=== PATIENT | male | born 1950 | race Caucasian/White ===

== ENCOUNTER → 2016-11-14 | Outpatient (CLI) | payer OTHER | END | disposition home or self-care (01) | LOC: PCVCCLINIC 15:30 | PROVIDERS: ATTEND Internal Medicine | DX: I25.10 Atherosclerotic heart disease of native coronary artery without angina pectoris (principal); E78.2 Mixed hyperlipidemia; I10 Essential (primary) hypertension; I65.29 Occlusion and stenosis of unspecified carotid artery | CPT/HCPCS: 80061; 93005; G0463 ==

== ENCOUNTER → 2017-08-15 | Outpatient (CLI) | payer MEDICARE | END | disposition home or self-care (01) | LOC: PCVCIMAG 13:04 | DX: I25.119 Atherosclerotic heart disease of native coronary artery with unspecified angina pectoris (principal); I65.23 Occlusion and stenosis of bilateral carotid arteries; I10 Essential (primary) hypertension; E78.2 Mixed hyperlipidemia; Z79.82 Long term (current) use of aspirin; Z79.899 Other long term (current) drug therapy | CPT/HCPCS: 93005; 93880; G0463 ==

== ENCOUNTER 2018-03-11 22:10 | Emergency (ER) | payer MEDICARE ==
[~2018-03-11] VITALS: Ht 167.6 cm; Wt 95.3 kg
[2018-03-11 22:10] VITALS: BP 107/63
[2018-03-11] MEDS ORDERED: OXYMETAZOLINE 0.05% NASAL SPRAY 30ML BOTTLE. NS ONE (22:15)
--- NOTE | 2018-03-11 23:32 | PHYS DOC ---
Past Medical History Past Medical History: Hypertension, Other Additional Past Medical Histor: PARKINSONS Past Surgical History: Hip Replacement, Tonsillectomy Alcohol Use: None Drug Use: None Adult General Chief Complaint Chief Complaint: NOSEBLEED HPI HPI Patient is a 67 year old male who presents to the emergency Department today with complaints of a nosebleed that started after bending over at approximately 2130 this evening. He denies any history of nosebleeds. States that he does take generic Plavix once a day, however he has not taken it for the last 2 days. He denies any shortness of breath, headache, injury, or difficulty breathing through his nose. Review of Systems Review of Systems Constitutional: Denies fever or chills [] Eyes: Denies change in visual acuity, redness, or eye pain [] HENT: Denies nasal congestion or sore throat, reports nose bleeding since approximately 2130 this evening. [] Respiratory: Denies cough or shortness of breath [] Cardiovascular: No additional information not addressed in HPI [] GI: Denies abdominal pain, nausea, vomiting Integument: Denies rash or skin lesions [] Neurologic: Denies headache, focal weakness or sensory changes [] All other systems were reviewed and found to be within normal limits, except as documented in this note. Current Medications Current Medications Current Medications Medications (Trade) Dose Ordered Sig/Greg Start Time Stop Time Status Last Admin Dose Admin Oxymetazoline HCl (Afrin) 2 spray 1X ONCE 03/11/18 22:15 03/11/18 23:13 DC 03/11/18 22:15 2 SPRAY Allergies Allergies Allergies Coded Allergies Type Severity Reaction Last Updated Verified No Known Drug Allergies 03/11/18 No Physical Exam Physical Exam Constitutional: Well developed, well nourished, no acute distress, non-toxic appearance. [] HENT: Normocephalic, atraumatic, bilateral external ears normal, oropharynx moist, no oral exudates, no active bleeding from left nare at this time, dried blood noted below right nare, bleeding controlled with nasal clamp in place and afrin that was given by nurse Eyes: PERRLA, conjunctiva renato; slight amount of dried bloody drainage from left eye, no active bleeding, clear tears at this time ] Neck: supple, no stridor. [] Skin: Warm, dry, no erythema, no rash. [] Back: No tenderness, no CVA tenderness. [] Neurologic: Alert and oriented X 3, normal sensory function, no focal deficits noted. [] Psychologic: Affect normal, judgement normal, mood normal. [] Current Patient Data Vital Signs Vital Signs Date Time Temp Pulse Resp B/P (MAP) Pulse Ox O2 Delivery O2 Flow Rate FiO2 03/11/18 22:10 98.6 66 16 107/63 (78) 97 Room Air 98.6 EKG EKG [] Radiology/Procedures Radiology/Procedures [] Course & Med Decision Making Course & Med Decision Making Pertinent Labs and Imaging studies reviewed. (See chart for details) Patient is a 67-year-old male who presents to emergency department with complaints of nosebleed after bending over at 2130. He denied any injury. VSS. Bleeding was controlled after afrin nasal spray was administered and a nasal clamp was applied. Pt denies any complaints. PT was instructed not to blow his nose or pick his nose for the next few days. Follow up with primary care doctor in 1-2 days. Use the nasal clamps provided in the event that your nose bleed resumes. He and his brother verbalized an understanding of home care , follow-up, and return to ED instructions and were in agreement with POC. [] Dragon Disclaimer Dragon Disclaimer This electronic medical record was generated, in whole or in part, using a voice recognition dictation system. Departure Departure Impression: Primary Impression: Right-sided nosebleed Disposition: 01 HOME, SELF-CARE Condition: STABLE Referrals: BRUNILDA MATTHEWS MD (PCP) Patient Instructions: Nosebleed, [id number] Additional Instructions: Do not to blow nose or stick things inside of nose for the next few days. Follow up with primary care doctor in 1-2 days. Use the nasal clamps provided in the event that your nose bleed resumes. Return to the ER if your symptoms worsen. SUSU SANTIAGO [employer] Mar 11, 2018 23:32
== END 2018-03-12 00:37 | disposition home or self-care (01) ==
LOC: ER 22:10
DX: R04.0 Epistaxis (principal); I10 Essential (primary) hypertension; G20 Parkinson's disease
CPT/HCPCS: 99283

== ENCOUNTER 2018-12-10 10:08 | Emergency (ER) | payer MEDICARE ==
[~2018-12-10] VITALS: Ht 165.1 cm; Wt 90.7 kg
[2018-12-10] MEDS ORDERED: LIDOCAINE/EPI/TETRACAINE TOPICAL GEL 3 ML. TP ONE (11:00)
[2018-12-10] MEDS ORDERED: NEOMY/BACITR/POLYMYXIN OINT PACKET. TP ONE (11:00)
--- NOTE | 2018-12-10 11:28 | RAD ---
CT HEAD INDICATION: Occipital head contusion, laceration COMPARISON: None Available. Exposure: One or more of the following individualized dose reduction techniques were utilized for this examination: 1. Automated exposure control 2. Adjustment of the mA and/or kV according to patient size 3. Use of iterative reconstruction technique TECHNIQUE: 5 mm contiguous axial images were obtained from the skull base to the vertex FINDINGS: Mild bilateral periventricular white matter hypodensities likely chronic small vessel ischemic disease. Small scalp contusion or hematoma identified in the superior occipital region. No evidence of acute intracranial hemorrhage. No extra-axial fluid collections. No mass effect or midline shift. Ventricular size is appropriate. Basal cisterns are patent. No fractures identified.Funes-white differentiation is preserved.Globes and orbits are within normal limits. Paranasal sinuses and mastoid air cells are clear. IMPRESSION: 1. No acute intracranial findings. 2. Small scalp contusion or hematoma identified in the right superior occipital region. Electronically signed by: John Brown MD (12/10/2018 11:25 AM) [id number]
[2018-12-10] MEDS ORDERED: DIPHTH,PERTUSS(ACELL),TET TOX 0.5 ML DISP.SYRIN. VAX IM ONE (11:30)
--- NOTE | 2018-12-10 11:59 | PHYS DOC ---
Past Medical History Past Medical History: Hypertension, Stroke Additional Past Medical Histor: parkinsons Past Surgical History: Hip Replacement Alcohol Use: Rarely Drug Use: None Adult General Chief Complaint Chief Complaint: LACERATION/AVULSION HPI HPI Patient is a 68 year old [f__sex] who presents with [] Review of Systems Review of Systems Constitutional: Denies fever or chills [] Eyes: Denies change in visual acuity, redness, or eye pain [] HENT: Denies nasal congestion or sore throat [] Respiratory: Denies cough or shortness of breath [] Cardiovascular: No additional information not addressed in HPI [] GI: Denies abdominal pain, nausea, vomiting, bloody stools or diarrhea [] : Denies dysuria or hematuria [] Musculoskeletal: Denies back pain or joint pain [] Integument: Denies rash or skin lesions [] Neurologic: Denies headache, focal weakness or sensory changes [] Endocrine: Denies polyuria or polydipsia [] All other systems were reviewed and found to be within normal limits, except as documented in this note. Current Medications Current Medications Current Medications Medications (Trade) Dose Ordered Sig/Greg Start Time Stop Time Status Last Admin Dose Admin Diphtheria/ Tetanus/Acell Pertussis (Boostrix) 0.5 ml ONCE ONCE 12/10/18 11:30 12/10/18 11:31 DC 12/10/18 11:48 0.5 ML Lidocaine/ Epinephrine (Let Topical) 3 ml 1X ONCE 12/10/18 11:00 12/10/18 11:01 DC 12/10/18 11:05 3 ML Neomycin/ Polymyxin/ Bacitracin (Triple Antibiotic Ointment) 1 pkt 1X ONCE 12/10/18 11:00 12/10/18 11:01 DC 12/10/18 11:05 1 PKT Allergies Allergies Allergies Coded Allergies Type Severity Reaction Last Updated Verified No Known Drug Allergies 03/11/18 No Physical Exam Physical Exam Constitutional: Well developed, well nourished, no acute distress, non-toxic appearance. [] HENT: Normocephalic, atraumatic, bilateral external ears normal, oropharynx moist, no oral exudates, nose normal. [] Eyes: PERRLA, EOMI, conjunctiva normal, no discharge. [] Neck: Normal range of motion, no tenderness, supple, no stridor. [] Cardiovascular:Heart rate regular rhythm, no murmur [] Lungs & Thorax: Bilateral breath sounds clear to auscultation [] Abdomen: Bowel sounds normal, soft, no tenderness, no masses, no pulsatile masses. [] Skin: Warm, dry, no erythema, no rash. [] Back: No tenderness, no CVA tenderness. [] Extremities: No tenderness, no cyanosis, no clubbing, ROM intact, no edema. [] Neurologic: Alert and oriented X 3, normal motor function, normal sensory function, no focal deficits noted. [] Psychologic: Affect normal, judgement normal, mood normal. [] Current Patient Data Vital Signs Vital Signs Date Time Temp Pulse Resp B/P (MAP) Pulse Ox O2 Delivery O2 Flow Rate FiO2 12/10/18 10:39 97.9 62 16 156/73 (100) 96 Room Air 97.9 EKG EKG [] Radiology/Procedures Radiology/Procedures [] Course & Med Decision Making Course & Med Decision Making Pertinent Labs and Imaging studies reviewed. (See chart for details) [] Dragon Disclaimer Dragon Disclaimer This electronic medical record was generated, in whole or in part, using a voice recognition dictation system. Departure Departure Impression: Primary Impression: Scalp contusion Additional Impression: Occipital scalp laceration Disposition: 01 HOME, SELF-CARE Condition: STABLE Referrals: BRUNILDA MATTHEWS MD (PCP) Patient Instructions: Facial or Scalp Contusion, [id number], Laceration Care, Adult, [id number] Additional Instructions: Do not soak your wound. You may shower. Clean wound daily with soap and water. Change dressing 2 times daily. Use over the counter antibiotic ointment with each dressing change. Strunk need to be removed in 7 days. Present to your family doctor or local [facility] care for removal. You may also present to the ED but it will be an additional visit/charge. After staple removal you may use Vitamin E ointment to soften the wound and prevent scarring. Use over the counter Tylenol or Ibuprofen for pain Problem Qualifiers Primary Impression: Scalp contusion Encounter type: initial encounter Qualified Codes: S00.03XA - Contusion of scalp, initial encounter Additional Impression: Occipital scalp laceration Encounter type: initial encounter Qualified Codes: S01.01XA - Laceration without foreign body of scalp, initial encounter MADI GO DO December 10, 2018 11:59
[2018-12-10] MEDS ORDERED: IBUPROFEN 400 MG TABLET. PO ONE (12:00)
[2018-12-10 12:30] VITALS: BP 186/91
== END 2018-12-10 12:30 | disposition home or self-care (01) ==
LOC: ER 10:08
DX: S01.01XA Laceration without foreign body of scalp, initial encounter (principal); R51 Headache; I10 Essential (primary) hypertension; Z86.73 Personal history of transient ischemic attack (TIA), and cerebral infarction without residual deficits; W20.8XXA Other cause of strike by thrown, projected or falling object, initial encounter; Y93.89 Activity, other specified; Y92.89 Other specified places as the place of occurrence of the external cause; Y99.8 Other external cause status
CPT/HCPCS: 12001; 70450; 90471; 90715; 99284-25

== ENCOUNTER 2019-01-31 11:19 | Emergency (ER) | payer MEDICARE ==
[~2019-01-31] VITALS: Ht 167.6 cm; Wt 88.5 kg
--- NOTE | 2019-01-31 12:27 | PHYS DOC ---
Past Medical History Past Medical History: Hypertension, Hypothyroid, Stroke Additional Past Medical Histor: parkinsons Past Surgical History: Hip Replacement Alcohol Use: Rarely Drug Use: None Adult General Chief Complaint Chief Complaint: MECHANICAL FALL HPI HPI Patient is a 68 year old male with history of Parkinson's disease who resents with accidental fall from standing with facial trauma and bilateral pain. Patient lost balance and fell striking his face on the ground. Patient denies l oss of consciousness, headache and neck pain. He is currently on Plavix. Patient also plans of bilateral knee pain left greater than right without obvious deformity on exam. Patient denies dizziness lightheadedness chest pain palpitations or any medical symptoms prior to fall. He has a history of prior falls. Tetanus is up-to-date. Additional history obtained from patient's brother. Patient lives at home with his .[] Review of Systems Review of Systems Review symptoms as per history of present illness. All other systems were reviewed and found to be within normal limits, except as documented in this note. Current Medications Current Medications Current Medications Medications (Trade) Dose Ordered Sig/Greg Start Time Stop Time Status Last Admin Dose Admin Cefazolin Sodium (Ancef) 1 gm Q8HRS 01/31/19 14:00 01/31/19 14:00 1 GM Cefazolin Sodium 1 gm/Dextrose 50 ml @ 100 mls/hr Q8HRS 01/31/19 14:00 01/31/19 14:00 DC Clonidine HCl (Catapres) 0.2 mg 1X ONCE 01/31/19 15:30 01/31/19 15:31 DC 01/31/19 15:25 0.2 MG Fentanyl Citrate (Fentanyl 2ml Vial) 50 mcg 1X ONCE 01/31/19 12:30 01/31/19 12:31 DC 01/31/19 12:25 50 MCG Lidocaine/ Epinephrine (LIDOCAINE 1%-EPI 1:100,000 Multi-Dose) 20 ml 1X ONCE 01/31/19 14:30 01/31/19 14:31 DC 01/31/19 14:30 20 ML Morphine Sulfate (Morphine Sulfate) 4 mg 1X ONCE 01/31/19 15:30 01/31/19 15:31 DC 01/31/19 15:24 4 MG Ondansetron HCl (Zofran) 4 mg 1X ONCE 01/31/19 12:30 01/31/19 12:31 DC 01/31/19 12:25 4 MG Allergies Allergies Allergies Coded Allergies Type Severity Reaction Last Updated Verified No Known Drug Allergies 03/11/18 No Physical Exam Physical Exam Constitutional: Well developed, well nourished, no acute distress, non-toxic appearance. [] HENT: Normocephalic, nasal bridge deformity with superficial laceration, left forehead laceration, abrasions to left maxilla, bilateral external ears normal, oropharynx moist. [] Eyes: PERRLA, EOMI, conjunctiva normal. [] Neck: Normal range of motion, no tenderness, supple. [] Cardiovascular:Heart rate regular rhythm, no murmur. [] Lungs & Thorax: Bilateral breath sounds clear to auscultation. [] Abdomen: Bowel sounds normal, soft, no tenderness. [] Skin: Warm. [] Back: No tenderness, no CVA tenderness. [] Extremities: No tenderness, B abrasions, no deformity, range of motion intact. [] Neurologic: Alert and oriented X 3, normal motor function, normal sensory function, no focal deficits noted. [] Psychologic: Affect normal, judgement normal, mood normal. [] Current Patient Data Vital Signs Vital Signs Date Time Temp Pulse Resp B/P (MAP) Pulse Ox O2 Delivery O2 Flow Rate FiO2 01/31/19 15:25 69 216/115 01/31/19 15:24 22 01/31/19 11:26 97.7 96 Room Air 97.7 Lab Values Laboratory Tests Test 01/31/19 12:40 01/31/19 13:55 White Blood Count 6.6 x10^3/uL (4.0-11.0) Red Blood Count 3.99 x10^6/uL (4.30-5.70) L Hemoglobin 12.7 g/dL (13.0-17.5) L Hematocrit 36.7 % (39.0-53.0) L Mean Corpuscular Volume 92 fL (79-100) Mean Corpuscular Hemoglobin 32 pg (25-35) Mean Corpuscular Hemoglobin Concent 35 g/dL (31-37) Red Cell Distribution Width 14.3 % (11.5-14.5) Platelet Count 157 x10^3/uL (140-400) Neutrophils (%) (Auto) 78 % (31-73) H Lymphocytes (%) (Auto) 12 % (24-48) L Monocytes (%) (Auto) 8 % (0-9) Eosinophils (%) (Auto) 1 % (0-3) Basophils (%) (Auto) 1 % (0-3) Neutrophils # (Auto) 5.2 x10^3uL (1.8-7.7) Lymphocytes # (Auto) 0.8 x10^3/uL (1.0-4.8) L Monocytes # (Auto) 0.5 x10^3/uL (0.0-1.1) Eosinophils # (Auto) 0.0 x10^3/uL (0.0-0.7) Basophils # (Auto) 0.0 x10^3/uL (0.0-0.2) Sodium Level 140 mmol/L (136-145) Potassium Level 3.6 mmol/L (3.5-5.1) Chloride Level 107 mmol/L (98-107) Carbon Dioxide Level 24 mmol/L (21-32) Anion Gap 9 (6-14) Blood Urea Nitrogen 23 mg/dL (8-26) Creatinine 0.9 mg/dL (0.7-1.3) Estimated GFR (Cockcroft-Gault) 83.7 BUN/Creatinine Ratio 26 (6-20) H Glucose Level 108 mg/dL (70-99) H Calcium Level 8.9 mg/dL (8.5-10.1) Total Bilirubin 0.8 mg/dL (0.2-1.0) Aspartate Amino Transferase (AST) 21 U/L (15-37) Alanine Aminotransferase (ALT) 12 U/L (16-63) L Alkaline Phosphatase 76 U/L (46-116) Troponin I Quantitative < 0.017 ng/mL (0.000-0.055) Total Protein 6.4 g/dL (6.4-8.2) Albumin 3.5 g/dL (3.4-5.0) Albumin/Globulin Ratio 1.2 (1.0-1.7) Urine Collection Type Unknown Urine Color Yellow Urine Clarity Clear Urine pH 5.5 Urine Specific [place] 1.020 Urine Protein Negative mg/dL (NEG-TRACE) Urine Glucose (UA) Negative mg/dL (NEG) Urine Ketones (Stick) Negative mg/dL (NEG) Urine Blood Negative (NEG) Urine Nitrite Negative (NEG) Urine Bilirubin Negative (NEG) Urine Urobilinogen Dipstick 1.0 mg/dL (0.2 mg/dL) Urine Leukocyte Esterase Negative (NEG) Urine RBC Occ /HPF (0-2) Urine WBC 0 /HPF (0-4) Urine Bacteria 0 /HPF (0-FEW) Urine Mucus Mod /LPF Laboratory Tests 01/31/19 12:40 Laboratory Tests 01/31/19 12:40 EKG EKG [] Radiology/Procedures Radiology/Procedures CT head/facial bones/cspine: No intracranial injury, nasal bone fracture with possible sinus ease versus hemorrhage, no C-spine injury. [Bilateral knees: No acute fractures] Course & Med Decision Making Course & Med Decision Making Pertinent Labs and Imaging studies reviewed. (See chart for details) [EKG lab and imaging was reviewed. Wounds cleansed, lacerations do not require repair. Typical closed head injury instructions provided. BP addressed. Patient walks with steady gait with walker prior to discharge.] Dragon Disclaimer Dragon Disclaimer This electronic medical record was generated, in whole or in part, using a voice recognition dictation system. Departure Departure Impression: Primary Impression: Contusion, knee Additional Impressions: Minor head injury Nasal bone fracture Parkinson disease Facial laceration Disposition: HOME, SELF-CARE Condition: GOOD Referrals: BRUNILDA MATTHEWS MD (PCP) Scripts Cephalexin (KEFLEX) 500 Mg Capsule 1 CAP PO TID, #21 CAP Prov: TRAV THAO DO 01/31/19 Problem Qualifiers TRAV THAO DO Jan 31, 2019 12:27
[2019-01-31] MEDS ORDERED: ONDANSETRON PF 4 MG/2 ML VIAL. IV ONE (12:30)
[2019-01-31] MEDS ORDERED: ceFAZolin SODIUM IV Push 1 GM VIAL. IVP ONE (12:30)
[2019-01-31] MEDS ORDERED: fentaNYL PF VIAL 100 MCG/2 ML VIAL IV ONE (12:30)
[2019-01-31 12:48] LABS: BASO % 1 % (0-3); EOS % 1 % (0-3); HEMATOCRIT 36.7 % (39.0-53.0); HEMOGLOBIN 12.7 g/dL (13.0-17.5); LYMPH # 0.8 x10^3/uL (1.0-4.8); LYMPH % 12 % (24-48); MEAN CORPUSCULAR HEMOGLOBIN 32 pg (25-35); MEAN CORPUSCULAR HGB CONC 35 g/dL (31-37); MEAN CORPUSCULAR VOLUME 92 fL (79-100); MONO # 0.5 x10^3/uL (0.0-1.1); MONO % 8 % (0-9); NEUT # 5.2 x10^3uL (1.8-7.7); NEUT % 78 % (31-73); PLATELET COUNT 157 x10^3/uL (140-400); RED BLOOD COUNT 3.99 x10^6/uL (4.30-5.70); RED CELL DISTRIBUTION WIDTH 14.3 % (11.5-14.5); WHITE BLOOD COUNT 6.6 x10^3/uL (4.0-11.0)
[2019-01-31 12:58] LABS: CALCIUM 8.9 mg/dL (8.5-10.1); CREATININE 0.9 mg/dL (0.7-1.3); GFR 83.7; POTASSIUM 3.6 mmol/L (3.5-5.1)
[2019-01-31 13:04] LABS: ALBUMIN 3.5 g/dL (3.4-5.0); ALBUMIN/GLOBULIN RATIO 1.2 (1.0-1.7); TOTAL BILIRUBIN 0.8 mg/dL (0.2-1.0); TOTAL PROTEIN 6.4 g/dL (6.4-8.2)
--- NOTE | 2019-01-31 13:06 | RAD ---
Exam performed: Bilateral knee 3 views. HISTORY: Trauma, patient fell on both knees today. DATE OF SERVICE: 01/31/2019. COMPARISON: None available FINDINGS: Severe narrowing of the left medial and lateral tibiofemoral and moderate narrowing of the patellofemoral joint is seen. Diffuse osteophytic spurring is noted. Extensive atheromatous vascular calcification. Vertically oriented well-corticated lucency is seen along the tibial spines, however no associated effusion is seen and a fracture is not considered likely. Mild narrowing of the right patellofemoral joint is seen. Normal alignment of the medial and lateral tibiofemoral joint is identified. There is no acute fracture or dislocation. No joint effusion. Bony thorax arthrosis involving proximal tibia and fibula. 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 Mild degenerative changes involving the right patellofemoral joint. No acute abnormality seen Electronically signed by: Amber Brown MD (01/31/2019 1:04 PM) [facility]
--- NOTE | 2019-01-31 13:35 | RAD ---
Exam performed: CT scan of the head , maxillofacial and cervical spine without contrast. Date of Service: 01/31/2019 Comparison: None available Clinical History: Patient fell and hit head and neck, complaining of facial injury and neck pain Technique: Helical acquisitions are obtained from the foramen magnum to the vertex without intravenous administration of contrast. In addition helical acquisitions are obtained through the maxillofacial structures and cervical spine. Sagittal and coronal reformatted images are obtained and reviewed. CT scan head findings: Prominence of cortical sulci and ventricular system is noted consistent with age-related atrophy. There are areas of low-attenuation in both periventricular and subcortical deep white matter cystic small vessel ischemic changes. Small bilateral lacunar infarcts. Normal ceja-white differentiation is maintained. There is no extra axial fluid collection, intraparenchymal hemorrhage or mass lesion. The visualized orbits, and the mastoid air cells are clear. Fluid in the left maxillary and bilateral ethmoid air cells noted. The calvarium is intact. Impression: 1. No acute intracranial process detected. 2. Age-related atrophy and bilateral periventricular small vessel ischemic changes. 3. Left maxillary and bilateral ethmoid sinus disease. End Impression. CT cervical spine findings: There is straightening of the cervical spine with minimal grade 1 anterolisthesis of C3 over C4. There is mild scoliosis of the cervical spine with rightward concavity . The vertebral body heights are preserved. There is narrowing of C4/5, C5/6 as well as C6/7 intravertebral disc spaces with mild osteophytic spurring. No prevertebral soft tissue swelling is identified. There are no fractures. No definite lymphadenopathy or masses are seen within the neck. The visualized thyroid and salivary glands appears preserved. Impression: 1. No acute abnormality seen in the CT scan cervical spine. 2. Spondylotic changes and multilevel disc degenerative changes are seen. End impression CT maxillofacial findings: There is an fluid level in the left maxillary sinus. Diffuse opacification of bilateral ethmoid air cells. There is probable fracture of left nasal bone with diffuse soft tissue swelling. Soft tissue density likely hemorrhage seen filling nasal cavity and oropharynx. The bony orbital margins and the intraorbital contents are bilaterally symmetric and unremarkable. Bilateral temporomandibular joints and the mandible appears intact. Zygomatic arches are bilaterally preserved. IMPRESSION: 1. Probable nondisplaced fracture distal tip of left nasal bone. 2. Air-fluid level in the left maxillary sinus and bilateral ethmoid air cells consistent with acute sinus disease or hemorrhage. RS Compliance Statement: One or more of the following individualized dose reduction techniques were utilized for this examination: 1. Automated exposure control 2. Adjustment of the mA and/or kV according to patient size 3. Use of iterative reconstruction technique Electronically signed by: Amber Brown MD (01/31/2019 1:33 PM) [facility]
[2019-01-31] MEDS ORDERED: ceFAZolin SODIUM IV Push 1 GM VIAL. IVP SCH (14:00)
[2019-01-31] MEDS ORDERED: ceFAZolin SODIUM 1 GM in IV DEXTROSE 5% 50 ML IV SCH (14:00)
[2019-01-31 14:01] LABS: BILIRUBIN,URINE NEGATIVE (NEG); CLARITY,URINE CLEAR; COLOR,URINE YELLOW; NITRITE,URINE NEGATIVE (NEG); PH,URINE 5.5; PROTEIN,URINE NEGATIVE (NEG-TRACE)
[2019-01-31 14:05] LABS: BACTERIA,URINE 0 /HPF (0-FEW); RBC,URINE OCC /HPF (0-2); WBC,URINE 0 /HPF (0-4)
[2019-01-31] MEDS ORDERED: LIDOCAINE 1%/EPI 1:100,000 20 ML VIAL. INJ ONE (14:30)
[2019-01-31 15:25] VITALS: BP 216/115
[2019-01-31] MEDS ORDERED: MORPHINE SULFATE 4 MG/ML VIAL. IV ONE (15:30)
[2019-01-31] MEDS ORDERED: cloNIDine HCL 0.1 MG TABLET PO ONE (15:30)
[2019-01-31] MEDS ORDERED: CEPH-264 PO (15:58)
--- NOTE | 2019-02-01 08:31 | EKG ---
[facility] [address] [place] [id number] Test Date: 2019-01-31 Test Time: 12:42:04 Pat Name: DAMIAN HERNANDEZ Department: Room: Gender: M Beader: : 1950 Requested By: TRAV THAO Order Number: [id number] Reading MD: Measurements Intervals [place] Rate: 71 P: 90 IL: 208 QRS: -6 QRSD: 120 T: -10 QT: 400 QTc: 435 Interpretive Statements SINUS RHYTHM LEFTWARD AXIS LOW LIMB LEAD VOLTAGE QRS(T) CONTOUR ABNORMALITY CONSIDER ANTEROSEPTAL MYOCARDIAL DAMAGE POSSIBLY ABNORMAL ECG RI6.01 Unconfirmed report No previous ECG available for comparison
== END 2019-01-31 16:07 | disposition home or self-care (01) ==
LOC: ER 11:19
DX: S02.2XXA Fracture of nasal bones, initial encounter for closed fracture (principal); S01.81XA Laceration without foreign body of other part of head, initial encounter; S80.02XA Contusion of left knee, initial encounter; S80.01XA Contusion of right knee, initial encounter; S09.8XXA Other specified injuries of head, initial encounter; M54.2 Cervicalgia; G20 Parkinson's disease; I10 Essential (primary) hypertension; E03.9 Hypothyroidism, unspecified; Z86.73 Personal history of transient ischemic attack (TIA), and cerebral infarction without residual deficits; W18.09XA Striking against other object with subsequent fall, initial encounter; Y93.89 Activity, other specified; Y92.89 Other specified places as the place of occurrence of the external cause; Y99.8 Other external cause status
CPT/HCPCS: 36415; 70450; 70486; 72125; 73562; 80053; 81001; 84484; 85025; 93005; 96372; 96374; 96375; 96376; 99285; J0690; J2270; J2405; J3010; J3490

== ENCOUNTER → 2020-08-25 | Outpatient (CLI) | payer MEDICARE ==
[2020-05-15 14:28] VITALS: BP 130/60
[~2020-08-25] MED LIST: AMAN100T PO; AMLO-186 PO; ASPI-630 PO; BISA5TAB4 PO; CARB1TAB22 PO; CARB1TAB5 PO; CARV25TA PO; CEFD300C PO; CEPH-264 PO; CLOP75TA PO; EZET10TA20 PO; GEMF600T8 PO; LEVO150T PO; LISI-130 PO; MULT-245 PO; NAPR220C4 PO; QUET25TA PO; QUIN40TA16 PO; SENN-22 PO; TRAZ-118 PO; TROS60CA2 PO
--- NOTE | 2020-08-25 18:00 | KCIC ---
AP and lateral chest. HISTORY: Lung crackles, R09.89 AP and lateral views were taken of the chest. Comparison is made with a study from July 2019. Hear t is upper normal in size. There is elevation of the right diaphragm similar to the prior study. Ther e are no acute infiltrates. There is no pleural effusion. IMPRESSION: 1. Elevated right diaphragm. 2. No acute infiltrates. Electronically signed by: Trip Hernández MD (08/25/2020 5:57 PM) [id number]
== END ==
LOC: KCIC 15:33
PROVIDERS: ATTEND Nurse Practitioner Gerontology
DX: Q79.1 Other congenital malformations of diaphragm (principal); R09.89 Other specified symptoms and signs involving the circulatory and respiratory systems
CPT/HCPCS: 71046

== ENCOUNTER 2021-06-04 14:21 | Inpatient (IN) | payer MEDICARE ==
[~2021-06-04] VITALS: Ht 157.5 cm; Wt 65.0 kg
[~2021-06-04 14:21] MED LIST changes: +ACET325T21 PO; +GEMF600T20 PO; -GEMF600T8 PO; +LEVO125T5 PO; +MAG30ORA2 PO; -QUET25TA PO; +QUET25TA3 PO
[2021-06-04] MEDS ORDERED: ALTEPLASE 2MG VIAL 5 MG in IV NORMAL SALINE 50ML 30 ML IV ONE ×2 (18:45→21:30)
--- NOTE | 2021-06-04 19:00 | PHYS DOC ---
Past Medical History Past Medical History: CVA, High Cholesterol, Hypertension, Hypothyroid Additional Past Medical Histor: PARKINSONS, SLEEP APNEA, HLD, NEUROPATHY, PVD, BPH, FALLS (TOÑA GARCIA APRN) Past Surgical History: Hip Replacement Additional Past Surgical Histo: BILATERAL HIP REPLACEMENT (TOÑA GARCIA APRN) Smoking Status: Former Smoker Alcohol Use: None Drug Use: None (TOÑA GARCIA APRN) General Adult EDM: Chief Complaint: OTHER COMPLAINTS HPI: HPI: Patient is a 71 year old male who presents with clogged port. Patient was brought in by dialysis social worker from his senior care. Patient is nonverbal. Staff states no other complaints from patient or concerns. Patient has history of CVA, hypertension, Parkinson's, dementia (TOÑA GARCIA APRN) Review of Systems: Review of Systems: ROS At least 10 ROS systems have been reviewed and are negative except as documented in the HPI. General: Negative except as outlined in HPI above. Skin: Negative except as outlined in HPI above. HEENT: Negative except as outlined in HPI above. Neck: Negative except as outlined in HPI above. Respiratory: Negative except as outlined in HPI above.. Cardiovascular: Negative except as outlined in HPI above. Abdomen: Negative except as outlined in HPI above. : Negative except as outlined in HPI above. Back/MSK: Negative except as outlined in HPI above. Neuro: Negative except as outlined in HPI above. Psych: Negative except as outlined in HPI above. (TOÑA GARCIA APRN) Heart Score: C/O Chest Pain: No Risk Factors: Risk Factors: DM, Current or recent (<one month) smoker, HTN, HLP, family history of CAD, obesity. Risk Scores: Score 0 - 3: 2.5% MACE over next 6 weeks - Discharge Home Score 4 - 6: 20.3% MACE over next 6 weeks - Admit for Clinical Observation Score 7 - 10: 72.7% MACE over next 6 weeks - Early Invasive Strategies (TOÑA GARCIA APRN) Current Medications: Current Medications Medications (Trade) Dose Ordered Sig/Greg Start Time Stop Time Status Last Admin Dose Admin Alteplase, Recombinant (Cathflo) 2 mg 1X ONCE 06/04/21 19:15 06/04/21 19:16 06/04/21 18:52 2 MG Alteplase, Recombinant 5 mg/ Sodium Chloride 30 ml @ 30 mls/hr 1X ONCE 06/04/21 18:45 06/04/21 18:42 DC (TOÑA GARCIA APRN) Allergies: Allergies: Allergies Coded Allergies Type Severity Reaction Last Updated Verified No Known Drug Allergies 03/11/18 No (TOÑA GARCIA APRN) Physical Exam: PE: Constitutional: Well developed, well nourished, no acute distress, non-toxic appearance. [] HENT: Normocephalic, atraumatic, bilateral external ears normal, oropharynx moist, no oral exudates, nose normal. [] Eyes: PERRLA, EOMI, conjunctiva normal, no discharge. [] Neck: Normal range of motion, no tenderness, supple, no stridor. [] Cardiovascular:Heart rate regular rhythm, no murmur [] Lungs & Thorax: Bilateral breath sounds clear to auscultation [] Abdomen: Bowel sounds normal, soft, no tenderness, no masses, no pulsatile masses. [] Skin: Warm, dry, no erythema, no rash. [] Back: No tenderness, no CVA tenderness. [] Extremities: No tenderness, no cyanosis, no clubbing, ROM intact, no edema. [] Neurologic: Alert and oriented to self, patient had previous CVA and is at baseline per staff and social work Psychologic: Affect normal, judgement normal, mood normal. [] (TOÑA GARCIA APRN) Current Patient Data: Vital Signs: Vital Signs Date Time Temp Pulse Resp B/P (MAP) Pulse Ox O2 Delivery O2 Flow Rate FiO2 06/04/21 18:13 98.5 75 17 198/109 (138) 100 Room Air 98.5 (TOÑA GARCIA APRN) EKG: EKG: [] (TOÑA GARCIA APRN) Radiology/Procedures: Radiology/Procedures: [] (TOÑA GARCIA APRN) Course & Med Decision Making: Course & Med Decision Making Pertinent Labs and Imaging studies reviewed. (See chart for details) [] 71-year-old male presents with a clogged port per nursing facility. Patient is currently receiving medication to treat MRSA and the port stopped working and flushing today. Denies all other complaints. Patient had previous CVA. Patient is nonverbal. Staff at nursing facility states patient is occasionally alert to self. Attempted to correct problem with Cathflo, which was unsuccessful. Advised dialysis social worker that patient would need to be admitted for further care Spoke with hospitalist who will be admitting patient for observation and surgical consult. Patient has history of dementia and became very agitated. Patient given 2 of Ativan. Patient was resting and calm upon admission. (TOÑA GARCIA APRN) Course & Med Decision Making I was the Attending physician on the above date of service of this patient. This patient was evaluated, examined, treated, and dispositioned from the emergency department by the mid-level practitioner. I reviewed case and agreed to need for admission for port malfunction/occlusion and surgical consultation Electronically signed, Santos Dubose DO (SANTOS DUBOSE DO) Paul Disclaimer: Paul Disclaimer: This electronic medical record was generated, in whole or in part, using a voice recognition dictation system. (TOÑA GARCIA APRN) Departure Departure Impression: Primary Impression: Port-A-Cath in place Disposition: ADMITTED INPATIENT Condition: STABLE Referrals: LUCI ORO MD (PCP) Scripts Daptomycin (Daptomycin) 350 Mg Vial 390 MG IV DAILY for MRSA abscess for 20 Days, #23 EACH Prov: GALINA LILLY MD 06/07/21 Levothyroxine Sodium (LEVOTHYROXINE SODIUM) 125 Mcg Tablet 1 TAB PO DAILY06 for hypothyroid, #30 TAB 5 Refills Prov: GALINA LILLY MD 06/07/21 Carvedilol (COREG) 25 Mg Tablet 25 MG PO BIDWMEALS for CARDIAC for 30 Days, #60 TAB Prov: GALINA LILLY MD 06/07/21 TOÑA GARCIA APRN Jun 04, 2021 18:59 SANTOS DUBOSE DO Jun 09, 2021 06:07
[2021-06-04] MEDS ORDERED: ALTEPLASE 2 MG VIAL INT CAT ONE ×2 (19:15→22:00)
[2021-06-04] MEDS ORDERED: HALOPERIDOL LACTATE 5 MG/ML VIAL. IVP ONE (23:45)
[2021-06-05] VITALS (8 sets, daily range): BP systolic 129–209; BP diastolic 81–113
--- NOTE | 2021-06-05 01:33 | EKG ---
[facility] [address] [place] [address] Test Date: 2021-06-05 Test Time: 00:39:37 Pat Name: DAMIAN HERNANDEZ Department: Room: 404 Gender: M Engine Pilot: : [id number] Requested By: TOÑA GARCIA Order Number: [id number] Reading MD: Elia Dean MD Measurements Intervals [place] Rate: 74 P: -140 [place]: 140 QRS: -37 QRSD: 132 T: 15 QT: 416 QTc: 467 Interpretive Statements SR BASEILNE ARTIFACT NON-SPECIFIC ST/T CHANGES CONSIDER PRIOR SEPTAL INFARCT Electronically Signed On 06-05-2021 9:01:15 ELECTRICAL AND INSTRUMENT MECHANIC by Elia Dean MD
--- NOTE | 2021-06-05 01:34 | NUR ---
The patient, DAMIAN HERNANDEZ, 71 y/o, M admitted by CLAUDINE ERICKSON MD, was given written information regarding hospital policies, unit procedures and contact persons. Valuables were checked and left with him.
[2021-06-05] MEDS: IV NORMAL SALINE 1000ML BAG 1,000 ML IV SCH ×2 (01:52→14:50)
--- NOTE | 2021-06-05 07:05 | PDOC1 ---
History and Physical Date of Admission Date of Admission DATE: 06/05/21 TIME: 07:04 Identification/Chief Complaint Chief Complaint Dyphagia Source Source: Patient History of Present Illness History of Present Illness Mr Kee is a 71-year-old male w/ PMHx CVA (left basal ganglia), HTN, Parkinson disease, and per history recent salivary gland surgery on Daptomycin who was brought to ED from SNF for PICC access problems and dysphagia. He has frequent falls. Patient denies any chest pain, denies any fever, denies any cough. When he falls it is almost always to the right side, and he falls despite use of a walker. Patient denied being exposed to anybody who tested positive for COVID-19. Patient denies any lower extremity pain, denies any pelvic pain, denies any hip pain. Confused initially. He thinks he was discharged from [facility] on 06/02 for IV daptomycin therapy at [facility]. Admitted for further treatment Past Medical History Cardiovascular: CAD, CHF, HTN, Other CENTRAL NERVOUS SYSTEM: CVA, Dementia, Periperal neuropathy, Other Musculoskeletal: Other Renal/: Benign prostatic enlarg., Other Past Surgical History Past Surgical History: Total hip replacement Family History Family History reviewed Family History: Family History Unknown Social History Smoke: No ALCOHOL: none Drugs: None Current Medications Current Medications Current Medications Alteplase, Recombinant 5 mg/ Sodium Chloride 30 ml @ 30 mls/hr 1X ONCE IV ; Start 06/04/21 at 18:45; Stop 06/04/21 at 18:42; Status DC Alteplase, Recombinant (Cathflo) 2 mg 1X ONCE INT CAT Last administered on 06/04/21at 18:52; Start 06/04/21 at 19:15; Stop 06/04/21 at 19:16; Status DC Alteplase, Recombinant 5 mg/ Sodium Chloride 30 ml @ 30 mls/hr 1X ONCE IV ; Start 06/04/21 at 21:30; Stop 06/04/21 at 22:29; Status UNV Alteplase, Recombinant (Cathflo) 2 mg 1X ONCE INT CAT Last administered on 06/04/21at 22:04; Start 06/04/21 at 22:00; Stop 06/04/21 at 22:01; Status DC Haloperidol Lactate (Haldol Inj) 5 mg 1X ONCE IVP Last administered on 06/04/21at 23:44; Start 06/04/21 at 23:45; Stop 06/04/21 at 23:46; Status DC Sodium Chloride 1,000 ml @ 75 mls/hr [id number] IV Last administered on 06/05/21at 01:52; Start 06/05/21 at 01:30; Stop 06/06/21 at 01:29 Acetaminophen (Tylenol) 650 mg PRN Q6HRS PRN PO MILD PAIN / TEMP > 100.3'F; Start 06/05/21 at 07:15; Status UNV Ondansetron HCl (Zofran) 4 mg PRN Q4HRS PRN IVP NAUSEA/VOMITING; Start 06/05/21 at 07:15; Status UNV Hydralazine HCl (Apresoline Inj) 10 mg PRN Q4HRS PRN IVP ELEVATED BP, SEE COMMENTS; Start 06/05/21 at 07:15; Status UNV Active Scripts Active Mag-Al Plus Xs Suspension (Mag Hydrox/Al Hydrox/Simeth) 30 Ml Oral.susp 30 Ml PO PRN Q3HRS PRN 14 Days Acetaminophen 325 Mg Tablet 650 Mg PO PRN Q6HRS PRN 14 Days Amlodipine Besylate 5 Mg Tablet 5 Mg PO BID 30 Days Senna-Time S Tablet (Sennosides/Docusate Sodium) 1 Each Tablet 1 Tab PO PRN BID PRN 30 Days Bisacodyl 5 Mg Tablet.dr 10 Mg PO DAILY 30 Days Lisinopril 40 Mg Tablet 10 Mg PO DAILY 30 Days Quetiapine Fumarate 25 Mg Tablet 50 Mg PO HS 30 Days Coreg (Carvedilol) 25 Mg Tablet 6.25 Mg PO BIDWMEALS 30 Days Reported Levothyroxine Sodium 125 Mcg Tablet 1 Tab PO DAILY Carbidopa-Levodopa 25-100 Tab (Carbidopa/Levodopa) 1 Each Tablet 1 Tab PO QID 30 Days Zetia (Ezetimibe) 10 Mg Tablet 10 Mg PO HS Multi Vitamin Daily (Multivitamin) 1 Each Tablet 1 Tab PO DAILY 30 Days Amantadine (Amantadine Hcl) 100 Mg Tablet 100 Mg PO BID Sinemet Cr 50-200 Tablet (Carbidopa/Levodopa) 1 Each Tablet.er 1 Tab PO 0200,0800,1400,2000 Clopidogrel (Clopidogrel Bisulfate) 75 Mg Tablet 1 Tab PO DAILY Allergies Allergies: Coded Allergies: No Known Drug Allergies (Unverified , 03/11/18) ROS Review of System Unable to complete 11 point ROS due to confusion Physical Exam General: Cooperative, mild distress HEENT: Atraumatic, PERRLA, EOMI, Other (dried blood in oral mucosa) Lungs: Clear to auscultation, Normal air movement Heart: S1S2, RRR, no thrills, no rubs Abdomen: Normal bowel sounds, Soft, No tenderness, No hepatosplenomegaly, No masses Extremities: No clubbing, No cyanosis, No edema, Normal pulses, No tender ness/swelling Skin: No rashes, No breakdown, No significant lesion Neuro: Sensation intact, Cranial nerves 3-12 NL, Reflexes 2+, Other (increased tone) Psych/Mental Status: Other (Confused) Vitals Vitals Vital Signs Date Time Temp Pulse Resp B/P (MAP) Pulse Ox O2 Delivery O2 Flow Rate FiO2 06/05/21 04:04 74 169/100 (123) 06/05/21 03:24 98.1 18 96 Room Air 98.1 VTE Prophylaxis Ordered VTE Prophylaxis Devices: Yes VTE Pharmacological Prophylaxi: Yes Assessment/Plan Assessment/Plan A/P: Dysphagia - likely related to parkinson Acute encephalopathy - metabolic from parkinsons, Cognitive impairment - likely related to PD progression Frequent falls - likely due to autonomic instability associated with progression of parkinson disease +/- h/o CVA, will check orthostatics. PT/OT. Rehab consult Hypertensive urgency - will cont home meds. PRN labetalol. Will check orthostatics before med adjustments H/o CVA - left basal ganglia lacunar infarct. No afib in history Parkinson disease - lost his neurologist recently, taking sinemet 50/200 QID and amantadine 100mg BID Hypothyroidism, TSH 43 in July 2019 - recent TSH 1 C5-6, C6-7 stenosis - previously noted. PMR consulted Oral abscess? - on daptomycin, will obtain medical records to clarify. ID has seen previously, appreciate assistance Malfunctioning PICC - will obtain CXR to verify placement and attempt cathflo if properly positioned. FEN - ADAT PPX - lovenox FULL CODE - previously DNR with me Dispo - inpatient Justifications for Admission Other Justification GALINA LILLY MD Jun 05, 2021 07:05
--- NOTE | 2021-06-05 07:08 | NUR ---
Pt BP is 209/105. Ucall placed to Dr. Licea. Waiting environmental compliance manager back
[2021-06-05] MEDS ORDERED: ONDANSETRON PF 4 MG/2 ML VIAL. IVP PRN (07:15)
[2021-06-05] MEDS ORDERED: ACETAMINOPHEN 325 MG TABLET. PO PRN ×2 (07:15→12:30)
[2021-06-05] MEDS: hydrALAZINE 20 MG/ML VIAL. IVP PRN ×2 (07:19→20:15)
--- NOTE | 2021-06-05 08:09 | NUR ---
PRN order for Hydralazine 10mg IV was given, pt received at approx 0730, BP at this time is 149/82
--- NOTE | 2021-06-05 12:28 | NUR ---
SW following. Discussed with RN. SW left voicemail this morning at [facility] to verify if pt is from their facility SNF or LTC - no response yet. Pt on room air, NPO. Clogged PICC line per RN, although unsure what the PICC was being used for. SW will continue to follow.
[2021-06-05] MEDS: CARVEDILOL 12.5 MG TABLET. PO SCH ×2 (12:30→17:00)
[2021-06-05] MEDS ORDERED: MAG HYDROX/ALUMINUM HYD/SIMETH 30 ML ORAL.SUSP PO PRN (12:30)
[2021-06-05] MEDS ORDERED: SENNOSIDES/DOCUSATE 8.6/50MG TABLET. PO PRN (12:30)
[2021-06-05] MEDS: CARBIDOPA/LEVODOPA 25/100MG TABLET PO SCH ×3 (13:00→20:31)
[2021-06-05] MEDS: BISACODYL 5 MG TABLET.DR. PO SCH (13:00)
[2021-06-05] MEDS: CLOPIDOGREL BISULFATE 75 MG TABLET PO SCH (13:00)
[2021-06-05] MEDS: AMANTADINE HCL 100 MG CAPSULE PO SCH ×2 (13:00→20:31)
[2021-06-05] MEDS: CARBIDOPA/LEVODOPA CR 25/100MG TABLET.SA. PO SCH ×2 (14:00→20:00)
[2021-06-05 14:22] LABS: BASO % 0 % (0-3); EOS # 0.1 x10^3/uL (0.0-0.7); EOS % 1 % (0-3); HEMATOCRIT 37.7 % (39.0-53.0); HEMOGLOBIN 12.7 g/dL (13.0-17.5); LYMPH # 1.3 x10^3/uL (1.0-4.8); LYMPH % 14 % (24-48); MEAN CORPUSCULAR HEMOGLOBIN 29 pg (25-35); MEAN CORPUSCULAR HGB CONC 34 g/dL (31-37); MEAN CORPUSCULAR VOLUME 86 fL (79-100); MONO # 0.6 x10^3/uL (0.0-1.1); MONO % 7 % (0-9); NEUT # 7.1 x10^3/uL (1.8-7.7); NEUT % 78 % (31-73); PLATELET COUNT 208 x10^3/uL (140-400); RED CELL DISTRIBUTION WIDTH 16.5 % (11.5-14.5); WHITE BLOOD COUNT 9.1 x10^3/uL (4.0-11.0)
[2021-06-05 14:42] LABS: ALBUMIN 2.8 g/dL (3.4-5.0); ALBUMIN/GLOBULIN RATIO 0.9 (1.0-1.7); CALCIUM 8.1 mg/dL (8.5-10.1); CREATININE 0.7 mg/dL (0.7-1.3); GFR 110.9; POTASSIUM 3.4 mmol/L (3.5-5.1); TOTAL BILIRUBIN 0.7 mg/dL (0.2-1.0); TOTAL PROTEIN 5.9 g/dL (6.4-8.2)
--- NOTE | 2021-06-05 16:50 | RAD ---
Single view of the chest. 06/05/2021 1:15 PM Indication: Reason: PICC placement. Concern for malpositioning Comparison: None Findings: There is a left upper extremity catheter the tip of which projects over the superior centra l mediastinum. Catheter position is uncertain radiographically. No pneumothorax is seen. Skinfolds no arturo on the left. No pleural effusion is identified. Heart size is normal. Mild aortic calcification n oted. No acute osseous abnormality is seen. IMPRESSION: Malpositioned PICC line with tip catheter tip projecting over the superior central medias tinum. Position catheter tip is uncertain radiographically. Findings were called to the patient's nurse at 4:50 PM 06/05/2021 Electronically signed by: Kevin Sherwood MD (06/05/2021 4:47 PM) [id number]
[2021-06-05] MEDS: EZETIMIBE 10 MG TABLET. PO SCH (20:31)
[2021-06-05] MEDS: QUEtiapine 25 MG TABLET. PO SCH (20:31)
[2021-06-06] MEDS: CARBIDOPA/LEVODOPA CR 25/100MG TABLET.SA. PO SCH ×4 (01:07→20:18)
[2021-06-06 03:00] VITALS: BP 138/80
[2021-06-06 07:00] VITALS: BP 186/108
[2021-06-06] MEDS: CARVEDILOL 12.5 MG TABLET. PO SCH ×2 (08:00→17:00)
[2021-06-06] MEDS: hydrALAZINE 20 MG/ML VIAL. IVP PRN (08:03)
[2021-06-06] MEDS: CARBIDOPA/LEVODOPA 25/100MG TABLET PO SCH ×4 (09:00→21:08)
[2021-06-06] MEDS: AMANTADINE HCL 100 MG CAPSULE PO SCH ×2 (10:11→21:09)
[2021-06-06] MEDS: CLOPIDOGREL BISULFATE 75 MG TABLET PO SCH (10:11)
[2021-06-06] MEDS: BISACODYL 5 MG TABLET.DR. PO SCH (10:11)
--- NOTE | 2021-06-06 10:15 | PDOC ---
[employer] PROGRESS NOTE Date of Service DOS: DATE: 06/06/21 TIME: 09:58 Chief Complaint Chief Complaint A/P: Dysphagia - likely related to parkinson Acute encephalopathy - metabolic from parkinsons, Cognitive impairment - likely related to PD progression Frequent falls - likely due to autonomic instability associated with progression of parkinson disease +/- h/o CVA, will check orthostatics. PT/OT. Rehab consult Hypertensive urgency - will cont home meds. PRN hydralazine Will check orthostatics before med adjustments H/o CVA - left basal ganglia lacunar infarct. No afib in history Parkinson disease - lost his neurologist recently, taking sinemet 50/200 QID and amantadine 100mg BID Hypothyroidism, TSH 43 in July 2019 - recent TSH 1 C5-6, C6-7 stenosis - previously noted. PMR consulted Oral abscess? - on daptomycin, will obtain medical records to clarify. ID has seen previously, appreciate assistance Malfunctioning PICC - will remove and replace on right FEN - ADAT PPX - lovenox FULL CODE - previously DNR with vt Dispo - inpatient History of Present Illness History of Present Illness Mr Kee is a 71-year-old male w/ PMHx CVA (left basal ganglia), HTN, Parkinson disease, and per history recent salivary gland surgery on Daptomycin who was brought to ED from SNF for PICC access problems and dysphagia. He has frequent falls. Patient denies any chest pain, denies any fever, denies any cough. When he falls it is almost always to the right side, and he falls despite use of a walker. Patient denied being exposed to anybody who tested positive for COVID-19. Patient denies any lower extremity pain, denies any pelvic pain, denies any hip pain. Confused initially. He thinks he was discharged from [facility] on 06/02 for IV daptomycin therapy at [place] [facility]. Admitted for further treatment Potassium low on IV replacement. Seen by speech given regular diet. Plan for PICC replacement today. No chest pain or shortness of breath. He is regaling nursing staff about a story of him flying to [place] for [employer] Vitals/I&O Vitals/I&O: Vital Signs Date Time Temp Pulse Resp B/P (MAP) Pulse Ox O2 Delivery O2 Flow Rate FiO2 06/06/21 08:03 186/108 06/06/21 08:00 Room Air 06/06/21 07:00 97.4 75 16 95 97.4 I & O 06/05/21 06/05/21 06/06/21 15:00 23:00 07:00 Intake Total 3163 ml Output Total 850 ml 1 ml Balance -850 ml 3162 ml Physical Exam General: Cooperative, mild distress Lungs: Clear Abdomen: Normal bowel sounds, Soft, No tenderness, No hepatosplenomegaly, No masses Extremities: No clubbing, No cyanosis, No edema, Normal pulses, No tenderness/s welling Skin: No rashes, No breakdown, No significant lesion Labs Labs: Laboratory Tests Test 06/05/21 14:05 White Blood Count 9.1 x10^3/uL (4.0-11.0) Red Blood Count 4.40 x10^6/uL (4.30-5.70) Hemoglobin 12.7 g/dL (13.0-17.5) Hematocrit 37.7 % (39.0-53.0) Mean Corpuscular Volume 86 fL (79-100) Mean Corpuscular Hemoglobin 29 pg (25-35) Mean Corpuscular Hemoglobin Concent 34 g/dL (31-37) Red Cell Distribution Width 16.5 % (11.5-14.5) Platelet Count 208 x10^3/uL (140-400) Neutrophils (%) (Auto) 78 % (31-73) Lymphocytes (%) (Auto) 14 % (24-48) Monocytes (%) (Auto) 7 % (0-9) Eosinophils (%) (Auto) 1 % (0-3) Basophils (%) (Auto) 0 % (0-3) Neutrophils # (Auto) 7.1 x10^3/uL (1.8-7.7) Lymphocytes # (Auto) 1.3 x10^3/uL (1.0-4.8) Monocytes # (Auto) 0.6 x10^3/uL (0.0-1.1) Eosinophils # (Auto) 0.1 x10^3/uL (0.0-0.7) Basophils # (Auto) 0.0 x10^3/uL (0.0-0.2) Sodium Level 137 mmol/L (136-145) Potassium Level 3.4 mmol/L (3.5-5.1) Chloride Level 102 mmol/L (98-107) Carbon Dioxide Level 28 mmol/L (21-32) Anion Gap 7 (6-14) Blood Urea Nitrogen 14 mg/dL (8-26) Creatinine 0.7 mg/dL (0.7-1.3) Estimated GFR (Cockcroft-Gault) 110.9 BUN/Creatinine Ratio 20 (6-20) Glucose Level 80 mg/dL (70-99) Calcium Level 8.1 mg/dL (8.5-10.1) Total Bilirubin 0.7 mg/dL (0.2-1.0) Aspartate Amino Transf (AST/SGOT) 17 U/L (15-37) Alanine Aminotransferase (ALT/SGPT) 28 U/L (16-63) Alkaline Phosphatase 95 U/L (46-116) Total Protein 5.9 g/dL (6.4-8.2) Albumin 2.8 g/dL (3.4-5.0) Albumin/Globulin Ratio 0.9 (1.0-1.7) Comment Review of Relevant I have reviewed the following items uche (where applicable) has been applied. Justifications for Admission Other Justification GALINA LILLY MD Jun 06, 2021 10:15
[2021-06-06 11:00] VITALS: BP 98/69
[2021-06-06] MEDS ORDERED: DAPTOmycin (GENERIC) IVPB 500 MG in IV NORMAL SALINE 50ML 50 ML IV SCH (12:15)
[2021-06-06] MEDS: DAPTOmycin (GENERIC) IVPB 390 MG in IV NORMAL SALINE 50ML 50 ML IV SCH (13:13)
[2021-06-06 15:00] VITALS: BP 98/71
--- NOTE | 2021-06-06 17:07 | PDOC ---
Infectious Disease Note Vital Sign Vital Signs Vital Signs Date Time Temp Pulse Resp B/P (MAP) Pulse Ox O2 Delivery O2 Flow Rate FiO2 06/06/21 15:00 97.8 75 16 98/71 (80) 97 Room Air 97.8 Labs Lab Laboratory Tests Test 06/06/21 12:45 Creatine Kinase 23 U/L (39-308) Objective Assessment pt seen, consult to follow Plan Plan of Care / JACKIE LOVELL MD Jun 06, 2021 17:07
[2021-06-06 19:00] VITALS: BP 95/59
[2021-06-06] MEDS: QUEtiapine 25 MG TABLET. PO SCH (21:09)
[2021-06-06] MEDS: EZETIMIBE 10 MG TABLET. PO SCH (21:09)
--- NOTE | 2021-06-06 21:51 | CONS ---
DATE OF CONSULTATION: 06/06/2021 REFERRING PHYSICIAN: Dr. Licea. REASON FOR CONSULTATION: MRSA bacteremia and on daptomycin. HISTORY OF PRESENT ILLNESS: This is a 71-year-old long-term resident from [place], who was recently admitted to [facility]. The patient had swelling of the right side of the face and the CT showed parotitis and sialadenitis. The patient had an elevated white count and his blood culture was done, which showed MRSA, that was dated 05/26. The patient eventually was discharged on 06/01 on IV daptomycin. The patient did not require any surgery or anything for the parotid gland, it improved. The patient received a call from the nursing facility that PICC line was not working and my office tried to arrange to replace it, but he ended up in the hospital with admission here. The patient denies any nausea, vomiting, diarrhea. Denies any chest pain, shortness of breath, abdominal pain, urinary symptoms or bowel symptoms. PAST MEDICAL HISTORY: Positive for Parkinson's disease, coronary artery disease, peripheral vascular disease, spinal stenosis, benign prostatic hypertrophy, cognitive deficit, hyperglycemia, radial nerve palsy and thyroid disease. PAST SURGICAL HISTORY: The patient also has had hip replacement. SOCIAL HISTORY: Negative for smoking, alcohol or illicit drug use. The patient is a long-term resident. ALLERGIES: No known drug allergies. CURRENT MEDICATIONS: Reviewed. The patient is on daptomycin. REVIEW OF SYSTEMS: As in HPI. All other systems reviewed are negative. PHYSICAL EXAMINATION: GENERAL: Alert, oriented gentleman, not in distress. VITAL SIGNS: Stable, afebrile. HEENT: Both pupils are round and reacting. No conjunctival lesion, no lesion in the mouth. NECK: Supple, no JVP, no lymphadenopathy. LUNGS: Clear. HEART: S1, S2, regular. ABDOMEN: Soft, nontender, no organomegaly. EXTREMITIES: No edema or cyanosis. SKIN: Unremarkable. NEUROLOGIC: The patient is alert, awake, able to communicate. No focal deficit. LABORATORY DATA: White count is 9.1. BUN and creatinine are normal. CK is 23. His chest x-ray showed possible malpositioning of the PICC line. IMPRESSION: 1. Methicillin-resistant Staphylococcus aureus bacteremia, dated 05/26/2021. Negative blood culture from 05/29/2021. The patient is on daptomycin. Continue daptomycin. 2. Recent parotitis, right sided, and sialadenitis, has resolved. 3. Malposition of PICC line. 4. Parkinson's disease. 5. History of cerebrovascular accident. 6. Dementia. 7. Benign prostatic hypertrophy. 8. assisted resident. RECOMMENDATIONS: Continue daptomycin, supposed to go for 4 weeks from 05/29. The PICC line has been planned to have replaced in the morning. Thank you very much, Dr. Licea, for giving me opportunity to participate in this patient's care. JOHNNA GO: Cass TID: [id number]
[2021-06-06 23:30] VITALS: BP 95/62
[2021-06-07] MEDS: CARBIDOPA/LEVODOPA CR 25/100MG TABLET.SA. PO SCH ×3 (02:14→14:43)
[2021-06-07 03:00] VITALS: BP 130/87
[2021-06-07] MEDS ORDERED: LEVOTHYROXINE 125 MCG TABLET PO SCH (06:00)
[2021-06-07 07:00] VITALS: BP 147/88
[2021-06-07] MEDS ORDERED: LIDOCAINE WITH 8.4% SOD BICARB 3 ML DISP.SYRIN. ONE (09:29)
[2021-06-07] MEDS: BISACODYL 5 MG TABLET.DR. PO SCH (09:33)
[2021-06-07] MEDS: AMANTADINE HCL 100 MG CAPSULE PO SCH (09:33)
[2021-06-07] MEDS: CARVEDILOL 12.5 MG TABLET. PO SCH (09:33)
[2021-06-07] MEDS: CARBIDOPA/LEVODOPA 25/100MG TABLET PO SCH ×2 (09:34→13:47)
[2021-06-07] MEDS: CLOPIDOGREL BISULFATE 75 MG TABLET PO SCH (09:35)
[2021-06-07] MEDS ORDERED: LIDOCAINE WITH 8.4% SOD BICARB 3 ML DISP.SYRIN. INJ ONE (10:00)
--- NOTE | 2021-06-07 10:04 | NUR ---
[facility] following. Discussed with RN, [facility] left another voicemail for social sciences professor, Donna at [facility] - notified of discharge. Clinicals faxed to [place], awaiting discharge orders to fax. [facility] will continue to follow. Addendum: 06/07/21 at 1521 by TOÑA WHITEHEAD [place] sent email to [facility] at [phone] stating shrimp picker time would be 1400. V[facility]URA notified RN at 1400 when email was seen.
--- NOTE | 2021-06-07 10:50 | PDOC ---
[employer] PROGRESS NOTE Date of Service DOS: DATE: 06/07/21 TIME: 10:49 Chief Complaint Chief Complaint A/P: Dysphagia - likely related to parkinson Acute encephalopathy - metabolic from parkinsons, Cognitive impairment - likely related to PD progression Frequent falls - likely due to autonomic instability associated with progression of parkinson disease +/- h/o CVA, will check orthostatics. PT/OT. Rehab consult Hypertensive urgency - will cont home meds. PRN hydralazine Will check orthostatics before med adjustments H/o CVA - left basal ganglia lacunar infarct. No afib in history Parkinson disease - lost his neurologist recently, taking sinemet 50/200 QID and amantadine 100mg BID Hypothyroidism, TSH 43 in July 2019 - recent TSH 1 C5-6, C6-7 stenosis - previously noted. Oral abscess? - on daptomycin, will obtain medical records to clarify. ID has seen previously, appreciate assistance. MRSA culture from 05/26 Malfunctioning PICC - replaced on left sided PICC FEN - ADAT PPX - lovenox FULL CODE - previously DNR with me Dispo - inpatient History of Present Illness History of Present Illness Mr Kee is a 71-year-old male w/ PMHx CVA (left basal ganglia), HTN, Parkinson disease, and per history recent salivary gland surgery on Daptomycin who was brought to ED from SNF for PICC access problems and dysphagia. He has frequent falls. Patient denies any chest pain, denies any fever, denies any cough. When he falls it is almost always to the right side, and he falls despite use of a walker. Patient denied being exposed to anybody who tested positive for COVID-19. Patient denies any lower extremity pain, denies any pelvic pain, denies any hip pain. Confused initially. He thinks he was discharged from [facility] on 06/02 for IV daptomycin therapy at [place] [facility]. Admitted for further treatment 06/06: Potassium low on IV replacement. Seen by speech given regular diet. Plan for PICC replacement today. No chest pain or shortness of breath. He is regaling nursing staff about a story of him flying to [place] for [employer] Afebrile. No chest pain or shortness of breath. Seen by ID will continue 4 weeks of antibiotics from 05 January with outpatient follow-up. PICC replaced on the left by IR with good positioning and functioning. Vitals/I&O Vitals/I&O: Vital Signs Date Time Temp Pulse Resp B/P (MAP) Pulse Ox O2 Delivery O2 Flow Rate FiO2 06/07/21 09:33 59 147/88 06/07/21 07:00 97.8 16 98 Room Air 97.8 I & O 06/06/21 06/06/21 06/07/21 15:00 23:00 07:00 Intake Total 50 ml Balance 50 ml Physical Exam General: Cooperative, mild distress Lungs: Clear Abdomen: Normal bowel sounds, Soft, No tenderness, No hepatosplenomegaly, No masses Extremities: No clubbing, No cyanosis, No edema, Normal pulses, No tenderness/swelling Skin: No rashes, No breakdown, No significant lesion Labs Labs: Laboratory Tests Test 06/06/21 12:45 06/07/21 08:20 Creatine Kinase 23 U/L (39-308) SARS-CoV-2 Antigen (Rapid) Negative (NEGATIVE) Comment Review of Relevant I have reviewed the following items uche (where applicable) has been applied. Medications: Current Medications Medications (Trade) Dose Ordered Sig/Greg Route PRN Reason Start Time Stop Time Status Last Admin Dose Admin Levothyroxine Sodium (Synthroid) 125 mcg DAILY06 PO 06/07/21 06:00 06/07/21 05:37 Daptomycin 390 mg/ Sodium Chloride 50 ml @ 100 mls/hr Q24H IV 06/06/21 13:00 06/06/21 13:13 Justifications for Admission Other Justification GALINA LILLY MD Jun 07, 2021 10:50
--- NOTE | 2021-06-07 10:52 | SNU/HH DC ---
DISCHARGE ORDERS DISCHARGE INFORMATION: DISCHARGE DATE: Jun 07, 2021 FINAL DIAGNOSIS MRSA sialodenitis, malfunctioning PICC CONDITION ON DISCHARGE: Stable POST DISCHARGE ORDERS: ACTIVITY ORDERS: No restrictions, Activity as tolerated WEIGHT BEARING STATUS: No restrictions, As tolerated DIET AFTER DISCHARGE: Cardiac WOUND/INCISION CARE: No wound care needed CHECKS AFTER DISCHARGE: CHECKS AFTER DISCHARGE: Check blood press - daily, Check your Temp as needed FOLLOW-UP: Additional Instructions: Follow up in 2 weeks: [facility] [address] [place] [address] P: F: Weekly CBC, Cr, CK, ESR, CRP TREATMENT/EQUIPMENT ORDERS: ADAPTIVE EQUIPMENT NEEDED: None, Front wheeled walker INFUSION EQUIPMENT NEEDED: PICC Line Physical Therapy For: Evalulation/Treatment Occupational Therapy For: Evaluation/Treatment Speech Language Pathology For: Evaluation/Treatment DISCHARGE MEDICATIONS: Home Meds Active Scripts Daptomycin (Daptomycin) 350 Mg Vial, 390 MG IV DAILY for MRSA abscess for 20 Days, #23 EACH Prov:GALINA LILLY MD 06/07/21 Levothyroxine Sodium (LEVOTHYROXINE SODIUM) 125 Mcg Tablet, 1 TAB PO DAILY06 for hypothyroid, #30 TAB 5 Refills Prov:GALINA LILLY MD 06/07/21 Carvedilol (COREG) 25 Mg Tablet, 25 MG PO BIDWMEALS for CARDIAC for 30 Days, #60 TAB Prov:GALINA LILLY MD 06/07/21 Mag Hydrox/Al Hydrox/Simeth (MAG-AL PLUS XS SUSPENSION) 30 Ml Oral.susp, 30 ML PO PRN Q3HRS PRN for HEARTBURN / GAS for 14 Days, #120 MISC Prov:JESSICA SHUKLA MD 12/26/20 Acetaminophen (ACETAMINOPHEN) 325 Mg Tablet, 650 MG PO PRN Q6HRS PRN for Headaches, Temp > 101.5F for 14 Days, #60 TAB Prov:JESSICA SHUKLA MD 12/26/20 Sennosides/Docusate Sodium (SENNA-TIME S TABLET) 1 Each Tablet, 1 TAB PO PRN BID PRN for CONSTIPATION for 30 Days, #60 TAB Prov:GALINA LILLY MD 05/15/20 Bisacodyl (BISACODYL) 5 Mg Tablet.dr, 10 MG PO DAILY for Constipation for 30 Days, #60 TAB.SR Prov:GALINA LILLY MD 05/15/20 Quetiapine Fumarate (QUETIAPINE FUMARATE) 25 Mg Tablet, 50 MG PO HS for PD/agitation for 30 Days, #60 TAB Prov:GALINA LILLY MD 05/15/20 Reported Medications Carbidopa/Levodopa (CARBIDOPA-LEVODOPA 25-100 TAB) 1 Each Tablet, 1 TAB PO QID for parkinsons for 30 Days, #120 TAB 0 Refills 05/09/20 Ezetimibe (ZETIA) 10 Mg Tablet, 10 MG PO HS for cholesterol, TAB 08/10/19 Multivitamin (MULTI VITAMIN DAILY) 1 Each Tablet, 1 TAB PO DAILY for supplement for 30 Days, #30 TAB 0 Refills 08/10/19 Amantadine Hcl (AMANTADINE) 100 Mg Tablet, 100 MG PO BID for parkinsons, TAB 08/10/19 Carbidopa/Levodopa (SINEMET CR 50-200 TABLET) 1 Each Tablet.er, 1 TAB PO 0200,0800,1400,2000 for parkinsons, TAB 08/10/19 Clopidogrel Bisulfate (CLOPIDOGREL) 75 Mg Tablet, 1 TAB PO DAILY for blood thinner, #90 TAB 1 Refill 08/10/19 Discontinued Scripts Amlodipine Besylate (AMLODIPINE BESYLATE) 5 Mg Tablet, 5 MG PO BID for blood pressure for 30 Days, #60 TAB Prov:JESSICA SHUKLA MD 12/26/20 Lisinopril (LISINOPRIL) 40 Mg Tablet, 10 MG PO DAILY for HTN for 30 Days, #8 TAB Prov:GALINA LILLY MD 05/15/20 GALINA LILLY MD Jun 07, 2021 10:52
[2021-06-07 11:00] VITALS: BP 149/68
[2021-06-07] MEDS ORDERED: CARV25TA PO (11:12)
[2021-06-07] MEDS ORDERED: LEVO125T5 PO (11:12)
[2021-06-07] MEDS ORDERED: DAPT350V IV (11:12)
--- NOTE | 2021-06-07 11:18 | PDOC3 ---
Discharge Summary Visit Information Date of Admission: Jun 05, 2021 Date of Discharge: Jun 07, 2021 Admitting Diagnosis: Dysphagia, confusion, malfunctioning PICC Final Diagnosis Dysphagia, confusion, malfunctioning PICC Brief Hospital Course Allergies Allergies Coded Allergies Type Severity Reaction Last Updated Verified No Known Drug Allergies 03/11/18 No Vital Signs Vital Signs Date Time Temp Pulse Resp B/P (MAP) Pulse Ox O2 Delivery O2 Flow Rate FiO2 06/07/21 09:33 59 147/88 06/07/21 08:00 Room Air 06/07/21 07:00 97.8 16 98 97.8 Lab Results Laboratory Tests Test 06/05/21 14:05 06/06/21 12:45 06/07/21 08:20 White Blood Count 9.1 x10^3/uL (4.0-11.0) Red Blood Count 4.40 x10^6/uL (4.30-5.70) Hemoglobin 12.7 g/dL (13.0-17.5) Hematocrit 37.7 % (39.0-53.0) Mean Corpuscular Volume 86 fL (79-100) Mean Corpuscular Hemoglobin 29 pg (25-35) Mean Corpuscular Hemoglobin Concent 34 g/dL (31-37) Red Cell Distribution Width 16.5 % (11.5-14.5) Platelet Count 208 x10^3/uL (140-400) Neutrophils (%) (Auto) 78 % (31-73) Lymphocytes (%) (Auto) 14 % (24-48) Monocytes (%) (Auto) 7 % (0-9) Eosinophils (%) (Auto) 1 % (0-3) Basophils (%) (Auto) 0 % (0-3) Neutrophils # (Auto) 7.1 x10^3/uL (1.8-7.7) Lymphocytes # (Auto) 1.3 x10^3/uL (1.0-4.8) Monocytes # (Auto) 0.6 x10^3/uL (0.0-1.1) Eosinophils # (Auto) 0.1 x10^3/uL (0.0-0.7) Basophils # (Auto) 0.0 x10^3/uL (0.0-0.2) Sodium Level 137 mmol/L (136-145) Potassium Level 3.4 mmol/L (3.5-5.1) Chloride Level 102 mmol/L (98-107) Carbon Dioxide Level 28 mmol/L (21-32) Anion Gap 7 (6-14) Blood Urea Nitrogen 14 mg/dL (8-26) Creatinine 0.7 mg/dL (0.7-1.3) Estimated GFR (Cockcroft-Gault) 110.9 BUN/Creatinine Ratio 20 (6-20) Glucose Level 80 mg/dL (70-99) Calcium Level 8.1 mg/dL (8.5-10.1) Total Bilirubin 0.7 mg/dL (0.2-1.0) Aspartate Amino Transf (AST/SGOT) 17 U/L (15-37) Alanine Aminotransferase (ALT/SGPT) 28 U/L (16-63) Alkaline Phosphatase 95 U/L (46-116) Total Protein 5.9 g/dL (6.4-8.2) Albumin 2.8 g/dL (3.4-5.0) Albumin/Globulin Ratio 0.9 (1.0-1.7) Creatine Kinase 23 U/L (39-308) SARS-CoV-2 Antigen (Rapid) Negative (NEGATIVE) Laboratory Tests Test 06/06/21 12:45 06/07/21 08:20 Creatine Kinase 23 U/L (39-308) SARS-CoV-2 Antigen (Rapid) Negative (NEGATIVE) Brief Hospital Course Mr Kee is a 71-year-old male w/ PMHx CVA (left basal ganglia), HTN, Parkinson disease, and per history recent salivary gland surgery on Daptomycin who was brought to ED from SNF for PICC access problems and dysphagia. He has frequent falls. Patient denies any chest pain, denies any fever, denies any cough. When he falls it is almost always to the right side, and he falls despite use of a walker. Patient denied being exposed to anybody who tested positive for COVID-19. Patient denies any lower extremity pain, denies any pelvic pain, denies any hip pain. Confused initially. He thinks he was discharged from [facility] on 06/[facility] for [facility] Admitted for further treatment 06/06: Potassium low on IV replacement. Seen by speech given regular diet. Plan for PICC replacement today. No chest pain or shortness of breath. He is regaling nursing staff about a story of him flying to [place] for [employer] [place] Afebrile. No chest pain or shortness of breath. Seen by ID will continue 4 weeks of antibiotics from 05 January with outpatient follow-up. PICC replaced on the left by IR with good positioning and functioning. Confusion improved likely after hydration antibiotic therapy diet advanced. Problem list: Dysphagia - likely related to parkinson Acute encephalopathy - metabolic from parkinsons, Cognitive impairment - likely related to PD progression Parotitis right-sided with sialoadenitis - resolved MRSA bacteremia 05/26/2021 Frequent falls - likely due to autonomic instability associated with progression of parkinson disease +/- h/o CVA, will check orthostatics. PT/OT. Rehab consult Hypertensive urgency - will cont home meds. PRN hydralazine Will check orthostatics before med adjustments H/o CVA - left basal ganglia lacunar infarct. No afib in history Parkinson disease - lost his neurologist recently, taking sinemet 50/200 QID and amantadine 100mg BID Hypothyroidism, TSH 43 in July 2019 - recent TSH 1 C5-6, C6-7 stenosis - previously noted. Malfunctioning PICC - replaced on left sided PICC Consults: IR and ID Greater than 30 minutes spent on discharge to SNF 2 week f/u with [facility] [address] [place] [address] P: F: Discharge Information Condition at Discharge: Improved Follow Up: Weeks Disposition/Orders: [facility] Scheduled Amantadine Hcl (Amantadine) 100 Mg Tablet, 100 MG PO BID for parkinsons, (Reported) Entered as Reported by: ETHAN RODRIGUEZ on 08/10/19 0258 Last Action: Converted on 06/05/21 1232 by GALINA LILLY MD Bisacodyl (Bisacodyl) 5 Mg Tablet.dr, 10 MG PO DAILY for Constipation for 30 Days, #60 Prescribed by: GALINA LILLY MD on 05/15/20 1118 Last Action: Continued on 06/05/21 1232 by GALINA LILLY MD Carbidopa/Levodopa (Sinemet Cr 50-200 Tablet) 1 Each Tablet.er, 1 TAB PO 020 0,0800,1400,2000 for parkinsons, (Reported) Entered as Reported by: ETHAN RODRIGUEZ on 08/10/19257 Last Action: Converted on 06/05/211231 by GALINA LILLY MD Carbidopa/Levodopa (Carbidopa-Levodopa 25-100 Tab) 1 Each Tablet, 1 TAB PO QID for parkinsons for 30 Days, #120 Ref 0 (Reported) Entered as Reported by: JESSICA ROBLES on 05/09/20553 Last Action: Continued on 06/05/211231 by GALINA LILLY MD Carvedilol (Coreg) 25 Mg Tablet, 25 MG PO BIDWMEALS for CARDIAC for 30 Days, #60 Prescribed by: GALINA LILLY MD on 06/07/211111 Clopidogrel Bisulfate (Clopidogrel) 75 Mg Tablet, 1 TAB PO DAILY for blood thinner, #90 Ref 1 (Reported) Entered as Reported by: ETHAN RODRIGUEZ on 08/10/19257 Last Action: Continued on 06/05/211231 by GALINA LILLY MD Daptomycin (Daptomycin) 350 Mg Vial, 390 MG IV DAILY for MRSA abscess for 20 Days, #23 Prescribed by: GALINA LILLY MD on 06/07/211111 Ezetimibe (Zetia) 10 Mg Tablet, 10 MG PO HS for cholesterol, (Reported) Entered as Reported by: ETHAN RODRIGUEZ on 08/10/19257 Last Action: Continued on 06/05/211231 by GALINA LILLY MD Levothyroxine Sodium (Levothyroxine Sodium) 125 Mcg Tablet, 1 TAB PO DAILY06 for hypothyroid, #30 Ref 5 Prescribed by: GALINA LILLY MD on 06/07/211111 Multivitamin (Multi Vitamin Daily) 1 Each Tablet, 1 TAB PO DAILY for supplement for 30 Days, #30 Ref 0 (Reported) Entered as Reported by: ETHAN RODRIGUEZ on 08/10/19257 Quetiapine Fumarate (Quetiapine Fumarate) 25 Mg Tablet, 50 MG PO HS for PD/agitation for 30 Days, #60 Prescribed by: GALINA LILLY MD on 05/15/201117 Last Action: Continued on 06/05/211231 by GALINA LILLY MD Scheduled PRN Acetaminophen (Acetaminophen) 325 Mg Tablet, 650 MG PO PRN Q6HRS PRN for Headaches, Temp > 101.5F for 14 Days, #60 Prescribed by: JESSICA SHUKLA MD on 12/26/208 Last Action: Continued on 06/05/21 1232 by GALINA LILLY MD Mag Hydrox/Al Hydrox/Simeth (Mag-Al Plus Xs Suspension) 30 Ml Oral.susp, 30 ML PO PRN Q3HRS PRN for HEARTBURN / GAS for 14 Days, #120 Prescribed by: JESSICA SHUKLA MD on 12/26/208 Last Action: Continued on 06/05/211231 by GALINA LILYL MD Sennosides/Docusate Sodium (Senna-Time S Tablet) 1 Each Tablet, 1 TAB PO PRN BID PRN for CONSTIPATION for 30 Days, #60 Prescribed by: GALINA LILLY MD on 05/15/208 Last Action: Continued on 06/05/211231 by GALINA LILLY MD Discontinued Medications Amlodipine Besylate (Amlodipine Besylate) 5 Mg Tablet, 5 MG PO BID for blood pressure for 30 Days, #60 Prescribed by: JESSICA SHUKLA MD on 12/26/201327 Lisinopril (Lisinopril) 40 Mg Tablet, 10 MG PO DAILY for HTN for 30 Days, #8 Prescribed by: GALINA LILLY MD on 05/15/201117 Justicifation of Admission Dx: Justifications for Admission: Justification of Admission Dx: Yes GALINA LILLY MD Jun 07, 2021 11:18
--- NOTE | 2021-06-07 13:24 | PDOC ---
Infectious Disease Note Vital Signs: Vital Signs Vital Signs Date Time Temp Pulse Resp B/P (MAP) Pulse Ox O2 Delivery O2 Flow Rate FiO2 06/07/21 11:00 97.8 61 18 149/68 (95) 97 Room Air 97.8 Physical Exam: PHYSICAL EXAM GENERAL: Alert, oriented gentleman, not in distress. HEENT: Both pupils are round and reacting. No conjunctival lesion, no lesion in the mouth. NECK: Supple, no JVP, no lymphadenopathy. LUNGS: Clear. HEART: S1, S2, regular. ABDOMEN: Soft, nontender, no organomegaly. EXTREMITIES: No edema or cyanosis. SKIN: Unremarkable. NEUROLOGIC: The patient is alert, awake, able to communicate. No focal deficit. Medications: Inpatient Meds: Medications reviewed. Labs: Lab Laboratory Tests Test 06/07/21 08:20 SARS-CoV-2 Antigen (Rapid) Negative (NEGATIVE) Objective: Assessment: LABORATORY DATA: White count is 9.1. BUN and creatinine are normal. CK is 23. His chest x-ray showed possible malpositioning of the PICC line. 1. Methicillin-resistant Staphylococcus aureus bacteremia, dated 05/26/2021. Negative blood culture from 05/29/2021. The patient is on daptomycin. Continue daptomycin. 2. Recent parotitis, right sided, and sialadenitis, has resolved. 3. Malposition of PICC line. 4. Parkinson's disease. 5. History of cerebrovascular accident. 6. Dementia. 7. Benign prostatic hypertrophy. 8. long term resident. Plan: Plan of Care Continue daptomycin, supposed to go for 4 weeks from 05/29. NEW PICC LINE IN PLACE f/u [facility] 06/19 at 3: PM [id number] Script in chart D/W REBECCA GALLEGO MD Jun 07, 2021 13:24
--- NOTE | 2021-06-07 13:31 | RAD ---
06/07/2021 Replacement of malpositioned pre-existing left upper extremity PICC line over a wire INDICATION: Malpositioned PICC line Consent: The procedure was explained in its entirety to the patient or the patients designated repres entative by a member of the treatment team, including a discussion of the risks, benefits and commonl y accepted alternatives to the procedure, as well as the expected consequences of no therapy whatsoev er. Discussion of the risks included, but was not limited to, those that are most frequent and thos e that are rare but possibly severe or life-threatening, as well as the possibility of unforeseen com plications. The left upper extremity was prepped and draped using standard maximal sterile barrier technique. Flu oroscopic evaluation demonstrates the pre-existing line to be malpositioned with tip projecting over the superior mediastinum. A guidewire was advanced through this catheter and manipulated into the IVC . Over this wire, a new PICC line was positioned such that the catheter was at the cavoatrial junctio n. The new catheter was found to flush and aspirate normally. No immediate competitions identified. Total fluoroscopy time: 1.5 minutes Dose area product 2 Funes centimeter squared IMPRESSION: Fluoroscopically guided replacement of left upper extremity PICC line over wire Electronically signed by: Kevin Sherwood MD (06/07/2021 1:28 PM) [id number]
[2021-06-07] MEDS: DAPTOmycin (GENERIC) IVPB 390 MG in IV NORMAL SALINE 50ML 50 ML IV SCH (13:47)
--- NOTE | 2021-06-07 14:40 | NUR ---
Pt was picked up by stretcher and taken to [facility]. The transportation that picked him up did not have room for the wheelchair. I spoke with Mariel at the facility and she was putting in for someone to pick it up. the wheelchair is in the storage room (4N), label with pts name. Faxed over a written prescription for Daptomycin to [facility] for George Kee from Dr. Burgos
[2021-06-07] MEDS ORDERED: LACTOBACILLUS RHAMNOSUS GG 1 CAPSULE. PO SCH (21:00)
== END 2021-06-07 14:40 | DRG 314 ==
LOC: ER 14:21 → 4 NORTH 06-05 00:12
PROVIDERS: ADMIT Internal Medicine; ATTEND Internal Medicine
PROC: 02PYX3Z Removal of Infusion Device from Great Vessel, External Approach (ICD-10-PCS; principal; 2021-06-07)
PROC: 02HV33Z Insertion of Infusion Device into Superior Vena Cava, Percutaneous Approach (ICD-10-PCS; 2021-06-07)
PROC: B5181ZA Fluoroscopy of Superior Vena Cava using Low Osmolar Contrast, Guidance (ICD-10-PCS; 2021-06-07)
DX: T82.524A Displacement of infusion catheter, initial encounter (principal); G93.41 Metabolic encephalopathy; G20 Parkinson's disease; E03.9 Hypothyroidism, unspecified; E78.00 Pure hypercholesterolemia, unspecified; E78.5 Hyperlipidemia, unspecified; F02.80 Dementia in other diseases classified elsewhere, unspecified severity, without behavioral disturbance, psychotic disturbance, mood disturbance, and anxiety; I11.0 Hypertensive heart disease with heart failure; I16.0 Hypertensive urgency; I25.10 Atherosclerotic heart disease of native coronary artery without angina pectoris; I50.9 Heart failure, unspecified; I73.9 Peripheral vascular disease, unspecified; N40.0 Benign prostatic hyperplasia without lower urinary tract symptoms; R13.10 Dysphagia, unspecified; R29.6 Repeated falls; Z66 Do not resuscitate; Z86.73 Personal history of transient ischemic attack (TIA), and cerebral infarction without residual deficits; Z87.891 Personal history of nicotine dependence; Z96.643 Presence of artificial hip joint, bilateral; Z20.822 Contact with and (suspected) exposure to COVID-19; Z86.14 Personal history of Methicillin resistant Staphylococcus aureus infection; K11.20 Sialoadenitis, unspecified
CPT/HCPCS: 36415; 36584; 71045; 80053; 82550; 85025; 87426; 93005; 96374; C1751; J0360; J0878; J1630; J2997; J7030; 92610-GN; 97530-GP; 99285-25; G0378

== ENCOUNTER 2021-06-27 10:09 | Inpatient (IN) | payer MEDICARE ==
[~2021-06-27] VITALS: Ht 188 cm; Wt 63.8 kg
[~2021-06-27 10:09] MED LIST changes: +DAPT350V IV
[2021-06-27] MEDS ORDERED: IV NORMAL SALINE 1000ML BAG 1,000 ML IV ONE (10:30)
[2021-06-27 10:46] LABS: BASO # 0.1 x10^3/uL (0.0-0.2); BASO % 1 % (0-3); EOS # 0.1 x10^3/uL (0.0-0.7); EOS % 1 % (0-3); HEMATOCRIT 35.8 % (39.0-53.0); HEMOGLOBIN 11.6 g/dL (13.0-17.5); LYMPH # 1.1 x10^3/uL (1.0-4.8); LYMPH % 9 % (24-48); MEAN CORPUSCULAR HEMOGLOBIN 28 pg (25-35); MEAN CORPUSCULAR HGB CONC 33 g/dL (31-37); MEAN CORPUSCULAR VOLUME 85 fL (79-100); MONO # 0.8 x10^3/uL (0.0-1.1); MONO % 7 % (0-9); NEUT # 9.5 x10^3/uL (1.8-7.7); NEUT % 82 % (31-73); PLATELET COUNT 196 x10^3/uL (140-400); RED CELL DISTRIBUTION WIDTH 16.4 % (11.5-14.5); WHITE BLOOD COUNT 11.7 x10^3/uL (4.0-11.0)
--- NOTE | 2021-06-27 10:52 | RAD ---
EXAM: AP View of the chest DATE: 06/27/2021 10:33 AM INDICATION: weakness, altered mental status COMPARISON: 06/05/2021 08/25/2020 FINDINGS: Heart is mildly enlarged. Aortic calcifications are seen. Right PICC tip terminates within the distal SVC. Elevation right hemidiaphragm. Patchy bilateral perihilar and left and right lung base airspace opaci ties. No pleural effusion or pneumothorax. IMPRESSION: 1. Patchy bilateral perihilar and left and right lung base airspace opacities 2. Right PICC tip terminates within the distal SVC. Electronically signed by: Bert Marquez MD (06/27/2021 10:49 AM) [id number]
[2021-06-27 10:59] LABS: PROTHROMBIN TIME PATIENT 14.7 SEC (11.7-14.0)
[2021-06-27 11:08] LABS: ALBUMIN/GLOBULIN RATIO 0.9 (1.0-1.7); CALCIUM 8.2 mg/dL (8.5-10.1); CREATININE 0.8 mg/dL (0.7-1.3); MAGNESIUM 1.8 mg/dL (1.8-2.4); TOTAL BILIRUBIN 0.7 mg/dL (0.2-1.0); TOTAL PROTEIN 6.2 g/dL (6.4-8.2)
--- NOTE | 2021-06-27 11:12 | PHYS DOC ---
Past Medical History Past Medical History: CVA, Dementia, High Cholesterol, Hypertension, Hypo thyroid Additional Past Medical Histor: PARKINSONS, SLEEP APNEA, HLD, NEUROPATHY, PVD, BPH, FALLS Past Medical History Limited secondary to dementia Past Surgical History: Hip Replacement Additional Past Surgical Histo: BILATERAL HIP REPLACEMENT Past Surgical History Limited secondary to dementia Smoking Status: Former Smoker Alcohol Use: None Drug Use: None Social History Limited secondary to dementia General Adult EDM: Chief Complaint: ALTERED MENTAL STATUS HPI: HPI: Patient is a 71-year-old male who presents to the emergency department via EMS from a [facility] for an acute change in mental status. According to EMS the [facility] facility reports that the patient is able to speak and converse at baseline. Patient is currently conscious, but not able to communicate nor is he well oriented. According to EMS report he was being treated for sepsis at his [facility] facility. Based on paperwork sent from nursing facility source of infection appears to be due to MRSA sialoadenitis . He is responsive to verbal stimuli. Due to patient condition in more detail HPI is unable to be obtained at this time. Review of Systems: Review of Systems: Review of systems grossly limited due to patient's current mental status Heart Score: C/O Chest Pain: N/A Family History: Family History: Unknown family history due to patient's current mental status Current Medications: Current Medications Medications (Trade) Dose Ordered Sig/Greg Start Time Stop Time Status Last Admin Dose Admin Sodium Chloride 1,000 ml @ 1,000 mls/hr 1X ONCE 06/27/21 10:30 06/27/21 11:29 06/27/21 10:44 1,000 MLS/HR Allergies: Allergies: Allergies Coded Allergies Type Severity Reaction Last Updated Verified No Known Drug Allergies 03/11/18 No Physical Exam: PE: Constitutional: Appears cachectic, looking around room, responsive to verbal stimuli HENT: Normocephalic, atraumatic Eyes: PERRL, conjunctiva normal, no discharge Neck: Normal range of motion, no tenderness, supple, no JVD, trachea midline Lungs & Thorax: No respiratory distress, normal chest wall excursion bilaterally, lungs clear to auscultation in all forrester Cardiovascular: +2 peripheral pulses, regular rate and rhythm Abdomen: Soft, no tenderness Skin: Warm, dry, no erythema, no rash Back: No tenderness, no CVA tenderness Extremities: No tenderness, ROM intact, no edema Neurologic: Responsive to verbal stimuli, unable to assess orientation, EKG: EKG: EKG taken at 1032 hrs. Baseline motion artifact present on EKG. Normal sinus rhythm rate of 73 bpm AL interval 194 ms, QRS interval 126 ms, QT/QTc 400 ms / [address] ST segments are at baseline, no acute ischemic changes appreciated on EKG Radiology/Procedures: Radiology/Procedures: [] Impression: PROCEDURE: CHEST AP ONLY EXAM: AP View of the chest DATE: 06/27/2021 10:33 AM INDICATION: weakness, altered mental status COMPARISON: 06/05/2021 08/25/2020 FINDINGS: Heart is mildly enlarged. Aortic calcifications are seen. Right PICC tip terminates within the distal SVC. Elevation right hemidiaphragm. Patchy bilateral perihilar and left and right lung base airspace opacities. No pleural effusion or pneumothorax. IMPRESSION: 1. Patchy bilateral perihilar and left and right lung base airspace opacities 2. Right PICC tip terminates within the distal SVC. Electronically signed by: Bert Marquez MD (06/27/2021 10:49 AM) [id number] PROCEDURE: CT HEAD AND CERVICAL SPINE WO Exam Date: 06/27/2021 10:[address] HEAD AND C-SPINE WO Indication: Reason: weakness, altered mental status / Spl. Instructions: / History: . One or more of the following dose reduction techniques were utilized: *Automated exposure control (AEC) *Adjustment of mA and/or kV according to patient size *Use of iterative reconstruction technique *CT scan done according to ALARA, or ALARA/IMAGE GENTLY EXAMINATION: CT OF THE HEAD WITHOUT CONTRAST INDICATION: Trauma, head injury, headache; TECHNIQUE: Noncontrast helical axial CT images of the head were obtained. FINDINGS: The ventricles and sulci are prominent consistent with cerebral volume loss. Patchy ill-defined low attenuation areas in the subcortical and periventricular white matter bilaterally are consistent with microvascular disease. There is no evidence of acute intracranial hemorrhage, extra-axial collection, mass effect, midline shift, or acute territorial infarct. No lesion of the skull base or the calvarium is seen. The visualized paranasal sinuses, mastoid air cells, and orbits are normal in appearance. IMPRESSION: No evidence for acute intracranial abnormality. Volume loss and microvascular disease. EXAMINATION: CT OF THE CERVICAL SPINE WITHOUT CONTRAST Clinical Indication: Cervical spine pain after trauma Technique: Thin cut helical axial CT images through the cervical spine were obtained without contrast on a multi-detector CT scanner. Source data was then reconstructed into sagittal and coronal planes. Findings: Motion artifact limits evaluation. Alignment is maintained without spondylolisthesis. Vertebral body heights are maintained without acute fracture. Mild to moderate multilevel degenerative changes are noted. No significant prevertebral soft tissue swelling is demonstrated. No severe osseous central canal stenosis is seen. Impression: No evidence of acute cervical spine fracture or subluxation. Degenerative changes noted. Electronically signed by: Willy Fatima MD (06/27/2021 11:32 AM) [id number] Course & Med Decision Making: Course & Med Decision Making Pertinent Labs and Imaging studies reviewed. (See chart for details) 71-year-old male presents to the emergency department via EMS from a [facility] facility due to an acute change in mental status. Patient is reportedly diminished from baseline. He is reported to be receiving treatment for sepsis at the nursing facility. Due to patient's poor mental status at this time we are unable to collect a more detailed history. Plan for blood work, vascular access, fluids, chest x-ray, head CT Patient requiring admission for further evaluation and treatment. Discussed with Dr. Perez (hospitalist) who is in agreement with admission. Discussed findings and plan with patient, who acknowledges understanding and agreement. Dragon Disclaimer: Dragon Disclaimer: This electronic medical record was generated, in whole or in part, using a voice recognition dictation system. Departure Departure Impression: Primary Impression: Altered mental status Qualified Codes: R41.82 - Altered mental status, unspecified Additional Impressions: Hypertensive urgency Hypokalemia Hx of sepsis Disposition: ADMITTED INPATIENT Admitting Physician: SHIREEN (Chris) Condition: STABLE Referrals: LUCI ORO MD (PCP) MADI GO DO Jun 27, 2021 11:12
--- NOTE | 2021-06-27 11:34 | RAD ---
Exam Date: 06/27/2021 10:[address] HEAD AND C-SPINE WO Indication: Reason: weakness, altered mental status / Spl. Instructions: / History: . One or more of the following dose reduction techniques were utilized: *Automated exposure control (AEC) *Adjustment of mA and/or kV according to patient size *Use of iterative reconstruction technique *CT scan done according to ALARA, or ALARA/IMAGE GENTLY EXAMINATION: CT OF THE HEAD WITHOUT CONTRAST INDICATION: Trauma, head injury, headache; TECHNIQUE: Noncontrast helical axial CT images of the head were obtained. FINDINGS: The ventricles and sulci are prominent consistent with cerebral volume loss. Patchy ill-defined low attenuation areas in the subcortical and periventricular white matter bilaterally are consistent with microvascular disease. There is no evidence of acute intracranial hemorrhage, extra-axial collecti on, mass effect, midline shift, or acute territorial infarct. No lesion of the skull base or the calv arium is seen. The visualized paranasal sinuses, mastoid air cells, and orbits are normal in appearan ce. IMPRESSION: No evidence for acute intracranial abnormality. Volume loss and microvascular disease. EXAMINATION: CT OF THE CERVICAL SPINE WITHOUT CONTRAST Clinical Indication: Cervical spine pain after trauma Technique: Thin cut helical axial CT images through the cervical spine were obtained without contrast on a multi-detector CT scanner. Source data was then reconstructed into sagittal and coronal planes. Findings: Motion artifact limits evaluation. Alignment is maintained without spondylolisthesis. Vertebral body heights are maintained without acute fracture. Mild to moderate multilevel degenerativ e changes are noted. No significant prevertebral soft tissue swelling is demonstrated. No severe osse ous central canal stenosis is seen. Impression: No evidence of acute cervical spine fracture or subluxation. Degenerative changes noted. Electronically signed by: Willy Fatima MD (06/27/2021 11:32 AM) [id number]
[2021-06-27] MEDS ORDERED: LABETALOL 20 MG/4 ML DISP.SYRIN. IVP ONE (12:30)
[2021-06-27] MEDS ORDERED: ACETAMINOPHEN 325 MG TABLET. PO PRN ×2 (13:15→17:30)
[2021-06-27] MEDS ORDERED: POTASSIUM BICARB 20 MEQ EFFERVESCENT TABLET. PO ONE (13:15)
[2021-06-27] MEDS ORDERED: ONDANSETRON PF 4 MG/2 ML VIAL. IVP PRN (13:15)
[2021-06-27] MEDS ORDERED: LABETALOL 20 MG/4 ML DISP.SYRIN. IVP PRN (14:00)
[2021-06-27] MEDS: IV NORMAL SALINE 1000ML BAG 1,000 ML IV SCH ×2 (15:07→23:48)
[2021-06-27 16:50] LABS: INFLUENZA A PATIENT NEGATIVE (NEGATIVE); INFLUENZA B PATIENT NEGATIVE (NEGATIVE)
[2021-06-27] MEDS: hydrALAZINE 20 MG/ML VIAL. IVP PRN (17:10)
--- NOTE | 2021-06-27 17:28 | PDOC1 ---
History and Physical Date of Admission Date of Admission DATE: 06/27/21 TIME: 17:25 Source Source: Chart review History of Present Illness History of Present Illness Mr. Kee is a 71-year-old male admit from a long-term group home nursing facility for an acute change in mental status. Had been able to speak and converse at baseline until today. he has end-stage parksinons with dysphagia, weight loss, wakness, and confusion. . Patient is currently conscious, but not able to communicate nor is he well oriented. . He is responsive but does not recognize me, he does not generate enough force to make sounds when he is trying to at times. Past Medical History Cardiovascular: CAD, CHF, HTN, Other CENTRAL NERVOUS SYSTEM: CVA, Dementia, Periperal neuropathy, Other (Parkinsons) Musculoskeletal: Other Renal/: Benign prostatic enlarg., Other Past Surgical History Past Surgical History: Total hip replacement Family History Family History: Family History Unknown Social History Smoke: No ALCOHOL: none Drugs: None Current Problem List Problem List Problems Medical Problems: (1) Altered mental status Status: Acute (2) Hx of sepsis Status: Acute (3) Hypokalemia Status: Acute Current Medications Current Medications Current Medications Sodium Chloride 1,000 ml @ 1,000 mls/hr 1X ONCE IV Last administered on 06/27/21at 10:44; Start 06/27/21 at 10:30; Stop 06/27/21 at 11:29; Status DC Labetalol HCl (Normodyne Iv Push) 20 mg 1X ONCE IVP Last administered on 06/27/21at 12:52; Start 06/27/21 at 12:30; Stop 06/27/21 at 12:31; Status DC Ondansetron HCl (Zofran) 4 mg PRN Q8HRS PRN IVP NAUSEA/VOMITING; Start 06/27/21 at 13:15; Stop 06/28/21 at 13:14 Sodium Chloride 1,000 ml @ 100 mls/hr Q10H IV Last administered on 06/27/21at 15:07; Start 06/27/21 at 13:15; Stop 06/28/21 at 13:14 Acetaminophen (Tylenol) 650 mg PRN Q4HRS PRN PO FEVER > 100.3'F; Start 06/27/21 at 13:15; Stop 06/28/21 at 13:14 Potassium Bicarbonate (Potassium Effervescent Tablet) 40 meq 1X ONCE PO Last administered on 06/27/21at 15:07; Start 06/27/21 at 13:15; Stop 06/27/21 at 13:20; Status DC Labetalol HCl (Normodyne Iv Push) 10 mg PRN Q2HR PRN IVP HYPERTENSION; Start 06/27/21 at 14:00 Lorazepam (Ativan Inj) 0.5 mg 1X ONCE IVP Last administered on 06/27/21at 17:11; Start 06/27/21 at 17:00; Stop 06/27/21 at 17:04; Status DC Hydralazine HCl (Apresoline Inj) 10 mg PRN Q4HRS PRN IVP ELEVATED BP, SEE COMMENTS Last administered on 06/27/21at 17:10; Start 06/27/21 at 17:00 Active Scripts Active Daptomycin 350 Mg Vial 390 Mg IV DAILY 20 Days Levothyroxine Sodium 125 Mcg Tablet 1 Tab PO DAILY06 Coreg (Carvedilol) 25 Mg Tablet 25 Mg PO BIDWMEALS 30 Days Mag-Al Plus Xs Suspension (Mag Hydrox/Al Hydrox/Simeth) 30 Ml Oral.susp 30 Ml PO PRN Q3HRS PRN 14 Days Acetaminophen 325 Mg Tablet 650 Mg PO PRN Q6HRS PRN 14 Days Senna-Time S Tablet (Sennosides/Docusate Sodium) 1 Each Tablet 1 Tab PO PRN BID PRN 30 Days Bisacodyl 5 Mg Tablet.dr 10 Mg PO DAILY 30 Days Quetiapine Fumarate 25 Mg Tablet 50 Mg PO HS 30 Days Reported Carbidopa-Levodopa 25-100 Tab (Carbidopa/Levodopa) 1 Each Tablet 1 Tab PO QID 30 Days Zetia (Ezetimibe) 10 Mg Tablet 10 Mg PO HS Multi Vitamin Daily (Multivitamin) 1 Each Tablet 1 Tab PO DAILY 30 Days Amantadine (Amantadine Hcl) 100 Mg Tablet 100 Mg PO BID Sinemet Cr 50-200 Tablet (Carbidopa/Levodopa) 1 Each Tablet.er 1 Tab PO 0200,0800,1400,2000 Clopidogrel (Clopidogrel Bisulfate) 75 Mg Tablet 1 Tab PO DAILY Allergies Allergies: Coded Allergies: No Known Drug Allergies (Unverified , 03/11/18) ROS Review of System unable, confusion, weakness Physical Exam General: moderate distress, Other (not oriented, awake, not alert, ) Lungs: Clear to auscultation Heart: S1S2, no murmurs Abdomen: Soft Extremities: No clubbing, Normal pulses Skin: No breakdown Neuro: Other (confused, weak) Psych/Mental Status: Other (confused) Vitals Vitals Vital Signs Date Time Temp Pulse Resp B/P (MAP) Pulse Ox O2 Delivery O2 Flow Rate FiO2 06/27/21 17:10 72 190/109 06/27/21 16:20 17 97 Room Air 06/27/21 10:09 98.0 98.0 Labs Labs Laboratory Tests Test 06/27/21 10:29 06/27/21 11:33 06/27/21 16:13 White Blood Count 11.7 x10^3/uL (4.0-11.0) Red Blood Count 4.20 x10^6/uL (4.30-5.70) Hemoglobin 11.6 g/dL (13.0-17.5) Hematocrit 35.8 % (39.0-53.0) Mean Corpuscular Volume 85 fL (79-100) Mean Corpuscular Hemoglobin 28 pg (25-35) Mean Corpuscular Hemoglobin Concent 33 g/dL (31-37) Red Cell Distribution Width 16.4 % (11.5-14.5) Platelet Count 196 x10^3/uL (140-400) Neutrophils (%) (Auto) 82 % (31-73) Lymphocytes (%) (Auto) 9 % (24-48) Monocytes (%) (Auto) 7 % (0-9) Eosinophils (%) (Auto) 1 % (0-3) Basophils (%) (Auto) 1 % (0-3) Neutrophils # (Auto) 9.5 x10^3/uL (1.8-7.7) Lymphocytes # (Auto) 1.1 x10^3/uL (1.0-4.8) Monocytes # (Auto) 0.8 x10^3/uL (0.0-1.1) Eosinophils # (Auto) 0.1 x10^3/uL (0.0-0.7) Basophils # (Auto) 0.1 x10^3/uL (0.0-0.2) Prothrombin Time 14.7 SEC (11.7-14.0) Prothromb Time International Ratio 1.2 (0.8-1.1) Activated Partial Thromboplast Time 40 SEC (24-38) Sodium Level 147 mmol/L (136-145) Potassium Level 3.0 mmol/L (3.5-5.1) Chloride Level 105 mmol/L (98-107) Carbon Dioxide Level 32 mmol/L (21-32) Anion Gap 10 (6-14) Blood Urea Nitrogen 11 mg/dL (8-26) Creatinine 0.8 mg/dL (0.7-1.3) Estimated GFR (Cockcroft-Gault) 95.0 BUN/Creatinine Ratio 14 (6-20) Glucose Level 77 mg/dL (70-99) Lactic Acid Level 0.8 mmol/L (0.4-2.0) Calcium Level 8.2 mg/dL (8.5-10.1) Magnesium Level 1.8 mg/dL (1.8-2.4) Total Bilirubin 0.7 mg/dL (0.2-1.0) Aspartate Amino Transf (AST/SGOT) 18 U/L (15-37) Alanine Aminotransferase (ALT/SGPT) 22 U/L (16-63) Alkaline Phosphatase 115 U/L (46-116) Ammonia < 10 mcmol/L (11-34) Creatine Kinase 119 U/L (39-308) Creatine Kinase MB (Mass) 1.8 ng/mL (0.0-3.6) Creatine Kinase MB Relative Index 1.5 % (0-4) Troponin I High Sensitivity 27 ng/L (4-75) Total Protein 6.2 g/dL (6.4-8.2) Albumin 3.0 g/dL (3.4-5.0) Albumin/Globulin Ratio 0.9 (1.0-1.7) SARS-CoV-2 Antigen (Rapid) Negative (NEGATIVE) Influenza Type A Antigen Negative (NEGATIVE) Influenza Type B Antigen Negative (NEGATIVE) Laboratory Tests Test 06/27/21 10:29 06/27/21 11:33 06/27/21 16:13 White Blood Count 11.7 x10^3/uL (4.0-11.0) Red Blood Count 4.20 x10^6/uL (4.30-5.70) Hemoglobin 11.6 g/dL (13.0-17.5) Hematocrit 35.8 % (39.0-53.0) Mean Corpuscular Volume 85 fL (79-100) Mean Corpuscular Hemoglobin 28 pg (25-35) Mean Corpuscular Hemoglobin Concent 33 g/dL (31-37) Red Cell Distribution Width 16.4 % (11.5-14.5) Platelet Count 196 x10^3/uL (140-400) Neutrophils (%) (Auto) 82 % (31-73) Lymphocytes (%) (Auto) 9 % (24-48) Monocytes (%) (Auto) 7 % (0-9) Eosinophils (%) (Auto) 1 % (0-3) Basophils (%) (Auto) 1 % (0-3) Neutrophils # (Auto) 9.5 x10^3/uL (1.8-7.7) Lymphocytes # (Auto) 1.1 x10^3/uL (1.0-4.8) Monocytes # (Auto) 0.8 x10^3/uL (0.0-1.1) Eosinophils # (Auto) 0.1 x10^3/uL (0.0-0.7) Basophils # (Auto) 0.1 x10^3/uL (0.0-0.2) Prothrombin Time 14.7 SEC (11.7-14.0) Prothromb Time International Ratio 1.2 (0.8-1.1) Activated Partial Thromboplast Time 40 SEC (24-38) Sodium Level 147 mmol/L (136-145) Potassium Level 3.0 mmol/L (3.5-5.1) Chloride Level 105 mmol/L (98-107) Carbon Dioxide Level 32 mmol/L (21-32) Anion Gap 10 (6-14) Blood Urea Nitrogen 11 mg/dL (8-26) Creatinine 0.8 mg/dL (0.7-1.3) Estimated GFR (Cockcroft-Gault) 95.0 BUN/Creatinine Ratio 14 (6-20) Glucose Level 77 mg/dL (70-99) Lactic Acid Level 0.8 mmol/L (0.4-2.0) Calcium Level 8.2 mg/dL (8.5-10.1) Magnesium Level 1.8 mg/dL (1.8-2.4) Total Bilirubin 0.7 mg/dL (0.2-1.0) Aspartate Amino Transf (AST/SGOT) 18 U/L (15-37) Alanine Aminotransferase (ALT/SGPT) 22 U/L (16-63) Alkaline Phosphatase 115 U/L (46-116) Ammonia < 10 mcmol/L (11-34) Creatine Kinase 119 U/L (39-308) Creatine Kinase MB (Mass) 1.8 ng/mL (0.0-3.6) Creatine Kinase MB Relative Index 1.5 % (0-4) Troponin I High Sensitivity 27 ng/L (4-75) Total Protein 6.2 g/dL (6.4-8.2) Albumin 3.0 g/dL (3.4-5.0) Albumin/Globulin Ratio 0.9 (1.0-1.7) SARS-CoV-2 Antigen (Rapid) Negative (NEGATIVE) Influenza Type A Antigen Negative (NEGATIVE) Influenza Type B Antigen Negative (NEGATIVE) VTE Prophylaxis Ordered VTE Prophylaxis Devices: Yes VTE Pharmacological Prophylaxi: Yes Assessment/Plan Assessment/Plan sepsis, . Methicillin-resistant Staphylococcus aureus bacteremia, dated 05/26/2021. Negative blood culture from 05/29/2021. went 4 week. The patient has been on daptomycin. Acute encephalopathy - metabolic from parkinsons disease , Cognitive impairment - likely related to PD progression History of cerebrovascular accident. - left basal ganglia lacunar infarct. Dementia. 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
[2021-06-27] MEDS ORDERED: SENNOSIDES/DOCUSATE 8.6/50MG TABLET. PO PRN (17:30)
[2021-06-27] MEDS ORDERED: MAG HYDROX/ALUMINUM HYD/SIMETH 30 ML ORAL.SUSP PO PRN (17:30)
[2021-06-27] MEDS: CARVEDILOL 12.5 MG TABLET. PO SCH (18:02)
[2021-06-27] MEDS: EZETIMIBE 10 MG TABLET. PO SCH ×2 (21:00→23:48)
[2021-06-27] MEDS: QUEtiapine 25 MG TABLET. PO SCH ×2 (21:00→23:48)
[2021-06-27] MEDS: AMANTADINE HCL 100 MG CAPSULE PO SCH (21:00)
[2021-06-27] MEDS: CARBIDOPA/LEVODOPA 25/100MG TABLET PO SCH ×2 (21:00→23:48)
[2021-06-27 22:30] VITALS: BP 146/81
[2021-06-27] MEDS ORDERED: QUET50TA5 PO (23:42)
[2021-06-27] MEDS ORDERED: ERTA1VIA16 IJ (23:42)
[2021-06-27] MEDS ORDERED: CYCL10TA19 PO (23:42)
[2021-06-27] MEDS ORDERED: LISI20TA18 PO (23:42)
[2021-06-27] MEDS ORDERED: QUET25TA5 PO (23:42)
[2021-06-27] MEDS ORDERED: OXYB5TAB10 PO (23:42)
[2021-06-27] MEDS ORDERED: LEVO150T5 PO (23:42)
[2021-06-28] MEDS: LEVOTHYROXINE 125 MCG TABLET PO SCH (00:12)
[2021-06-28 03:00] VITALS: BP 172/101
[2021-06-28 07:00] VITALS: BP 208/99
[2021-06-28] MEDS: CARVEDILOL 12.5 MG TABLET. PO SCH ×2 (08:00→17:00)
[2021-06-28] MEDS: hydrALAZINE 20 MG/ML VIAL. IVP PRN ×2 (08:45→15:28)
[2021-06-28] MEDS: BISACODYL 5 MG TABLET.DR. PO SCH (09:00)
[2021-06-28] MEDS ORDERED: DAPTOMYCIN IV SCH (09:00)
[2021-06-28] MEDS: CARBIDOPA/LEVODOPA 25/100MG TABLET PO SCH ×4 (09:00→21:00)
[2021-06-28] MEDS: AMANTADINE HCL 100 MG CAPSULE PO SCH ×2 (09:00→21:00)
[2021-06-28] MEDS: CLOPIDOGREL BISULFATE 75 MG TABLET PO SCH (09:00)
--- NOTE | 2021-06-28 10:52 | CONS ---
DATE OF CONSULTATION: 06/28/2021 REFERRING PHYSICIAN: Dr. Perez. REASON FOR CONSULTATION: History of MRSA bacteremia. HISTORY OF PRESENT ILLNESS: A 71-year-old retirement resident, brought to the ER via EMS for acute change in mental status. The patient has history of dementia, CVA, Parkinson's, was discharged last month on daptomycin for MRSA bacteremia and right sialadenitis and parotitis. The patient had PICC line issues and was admitted briefly at [facility]. As per chart review and nursing staff, the patient is able to speak and converse at baseline. The patient is conscious, opens eyes, but does not answer any question. Further details are unavailable. The patient's white count was 11.7. He is afebrile. Chest x-ray showed patchy bilateral perihilar and left and right lung base airspace opacities, right PICC line terminates in the distal SVC. CT head and spine without acute intracranial abnormality. All fracture, DJD changes present. ID consultation has been requested for history of MRSA bacteremia and antibiotic management. PAST MEDICAL HISTORY: Parkinson's, CVA, coronary artery disease, peripheral vascular disease, spinal stenosis, BPH, cognitive deficit, radial nerve palsy, thyroid disease, hyperglycemia. PAST SURGICAL HISTORY: He has history of hip replacement. SOCIAL HISTORY: Negative for smoking, ETOH, or illicit drug use. custodial resident. ALLERGIES: No known drug allergies. REVIEW OF SYSTEMS: Unable to obtain. CURRENT MEDICATIONS: Daptomycin. Other medications reviewed in medication list. PHYSICAL EXAMINATION: VITAL SIGNS: Temperature 98.4, pulse 85, respiratory rate 20, blood pressure 208/99, oxygen saturation 98% on room air. GENERAL: Awake, opens eyes, not oriented, in no acute distress. HEENT: Oral mucosa dry. No thrush. Right parotid swelling, erythema, tenderness improved compared to last admission Normocephalic, atraumatic. NECK: Supple. LUNGS: Clear bilaterally. HEART: S1, S2. No murmurs. ABDOMEN: Soft, nontender, nondistended. EXTREMITIES: No edema or cyanosis. DERMATOLOGIC: Superficial abrasions present. NEUROLOGIC: Confused, weak. PSYCHIATRIC: Unable to assess. LABORATORY DATA: WBC 11.7, hemoglobin 11.6, hematocrit 35.8, platelets 196. Sodium 137, potassium 3.0, chloride 105, bicarbonate 32, BUN 11, creatinine 0.8, glucose 77, lactate 0.8, calcium 8.2. LFTs normal. Albumin 3.0. SARS-COVID negative. Influenza screen negative. IMAGING: Head and cervical spine CT as above. Chest x-ray as above. IMPRESSION: 1. Encephalopathy, etiology unclear with underlying history of Parkinson's, cerebrovascular accident, cognitive impairment. 2. History of methicillin-resistant Staphylococcus aureus bacteremia on 05/26/2021 at [facility], on daptomycin. 3. Right parotitis and sialadenitis. Improving 4. Leukocytosis. 5. History of cerebrovascular accident. 6. History of cognitive impairment. 7. BPH. 8. Hypertensive urgency. RECOMMENDATIONS: 1. Continue daptomycin. 2. Add empiric cefepime for now. 3. Monitor labs and blood cultures 4. Consider Neurology consult. 5. Follow up repeat blood cultures. 6. Maintain aspiration precaution. 7. Prognosis is very poor. Thank you for allowing me to participate in this patient's care. If you have any questions, do not hesitate to contact me. SARAH BETH DR: Meri TID: [id number] [facility]
[2021-06-28 11:00] VITALS: BP 182/85
--- NOTE | 2021-06-28 11:13 | NUR ---
SW following. Discussed with RN. 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 ST and ID following. Flu negative and Rapid COVID-19 negative. Plan to send updates tomorrow. VENTURA will continue to follow.
--- NOTE | 2021-06-28 11:24 | PDOC ---
[employer] PROGRESS NOTE Date of Service DOS: DATE: 06/28/21 TIME: 11:18 Chief Complaint Chief Complaint Altered Mental Status Hypokalemia Parkinsons History of the following: Sepsis CAD CHF HTN CVA Dementia Peripheral Neuropathy Benign Prostatic Enlargement Total Hip Replacement History of Present Illness History of Present Illness 06/28 Patient seen and examined, pleasantly confused and extremely soft spoken Chart Reviewed Discussed with RN Antibiotics Hanging Vitals/I&O Vitals/I&O: Vital Signs Date Time Temp Pulse Resp B/P (MAP) Pulse Ox O2 Delivery O2 Flow Rate FiO2 06/28/21 08:45 85 208/99 06/28/21 08:00 Room Air 06/28/21 07:00 98.4 20 98 98.4 I & O 06/27/21 06/27/21 06/28/21 14:59 22:59 06:59 Intake Total 1000 ml Balance 1000 ml Physical Exam General: moderate distress, Other (not oriented, awake, not alert, ) Lungs: Clear Abdomen: Soft Extremities: No clubbing, Normal pulses Skin: No breakdown Labs Labs: Laboratory Tests Test 06/27/21 11:33 06/27/21 16:13 SARS-CoV-2 RNA (SAUNDRA) Negative (Negative) SARS-CoV-2 Antigen (Rapid) Negative (NEGATIVE) Influenza Type A Antigen Negative (NEGATIVE) Influenza Type B Antigen Negative (NEGATIVE) Assessment and Plan Assessmemt and Plan Problems Medical Problems: (1) Altered mental status Status: Acute (2) Hx of sepsis Status: Acute (3) Hypokalemia Status: Acute Altered Mental Status Hypokalemia Parkinsons History of the following: Sepsis CAD CHF HTN CVA Dementia Peripheral Neuropathy Benign Prostatic Enlargement Total Hip Replacement PLAN: Continue Antibiotics (Cefeprime and Daptomycin) Continue Fluids Continue Cardiac Monitoring IV Potassium replacement Trend Labs DVT Prophylaxis Home Meds Full Code Appreciate Infectious Disease Input Comment Review of Relevant I have reviewed the following items uche (where applicable) has been applied. Medications: Current Medications Medications (Trade) Dose Ordered Sig/Greg Route PRN Reason Start Time Stop Time Status Last Admin Dose Admin Labetalol HCl (Normodyne Iv Push) 20 mg 1X ONCE IVP 06/27/21 12:30 06/27/21 12:31 DC 06/27/21 12:52 Sodium Chloride 1,000 ml @ 100 mls/hr Q10H IV 06/27/21 13:15 06/28/21 13:14 06/27/21 23:48 Potassium Bicarbonate (Potassium Effervescent Tablet) 40 meq 1X ONCE PO 06/27/21 13:15 06/27/21 13:20 DC 06/27/21 15:07 Lorazepam (Ativan Inj) 0.5 mg 1X ONCE IVP 06/27/21 17:00 06/27/21 17:04 DC 06/27/21 17:11 Hydralazine HCl (Apresoline Inj) 10 mg PRN Q4HRS PRN IVP ELEVATED BP, SEE COMMENTS 06/27/21 17:00 06/28/21 08:45 Carvedilol (Coreg) 25 mg BIDWMEALS PO 06/27/21 18:00 06/27/21 18:02 Justifications for Admission Other Justification ADDIS GUILLEN III DO Jun 28, 2021 11:24
[2021-06-28] MEDS: IV NORMAL SALINE 1000ML BAG 1,000 ML IV SCH (12:33)
[2021-06-28] MEDS: CEFEPIME HCL IV Push 1 GM VIAL. IVP SCH ×2 (12:34→21:19)
[2021-06-28] MEDS: DAPTOmycin (GENERIC) IVPB 390 MG in IV NORMAL SALINE 50ML 50 ML IV SCH (13:35)
[2021-06-28 15:00] VITALS: BP 209/115
[2021-06-28 18:57] VITALS: BP 160/100
[2021-06-28] MEDS: QUEtiapine 25 MG TABLET. PO SCH (21:00)
[2021-06-28] MEDS: EZETIMIBE 10 MG TABLET. PO SCH (21:00)
[2021-06-28 23:00] VITALS: BP 184/105
[2021-06-29 02:37] VITALS: BP 169/89
[2021-06-29 05:55] LABS: CREATININE 0.6 mg/dL (0.7-1.3); GFR 132.4; TOTAL BILIRUBIN 0.8 mg/dL (0.2-1.0)
[2021-06-29] MEDS: LEVOTHYROXINE 125 MCG TABLET PO SCH (06:00)
[2021-06-29 06:01] LABS: POTASSIUM 2.9 mmol/L (3.5-5.1)
[2021-06-29] MEDS ORDERED: POTASSIUM CHLORIDE 20MEQ 100 ML IV SCH (06:30)
[2021-06-29] MEDS: POTASSIUM CHLORIDE 10MEQ 100 ML IV SCH ×4 (06:43→11:25)
[2021-06-29 07:00] VITALS: BP 195/104
--- NOTE | 2021-06-29 08:24 | PDOC ---
Infectious Disease Note Subjective: Subjective Patient more alert Answer simple questions States pain is under control No acute issues per discussion with RN Vital Signs: Vital Signs Vital Signs Date Time Temp Pulse Resp B/P (MAP) Pulse Ox O2 Delivery O2 Flow Rate FiO2 06/29/21 02:37 97.9 90 18 169/89 (115) 98 Room Air 97.9 Physical Exam: PHYSICAL EXAM GENERAL: More alert, awake, answers a few questions HEENT: Oral mucosa dry. No thrush. Right parotid swelling, erythema, tenderne ss improved compared to last admission Normocephalic, atraumatic. NECK: Supple. LUNGS: Clear bilaterally. HEART: S1, S2. No murmurs. ABDOMEN: Soft, nontender, nondistended. EXTREMITIES: No edema or cyanosis. Right heel chronic nonhealing ulcer, does not appear infected DERMATOLOGIC: Superficial abrasions present. NEUROLOGIC alert awake somewhat confused, generalized weakness PSYCHIATRIC: Unable to assess. Medications: Inpatient Meds: Medications reviewed. Labs: Lab Laboratory Tests Test 06/29/21 04:40 Sodium Level 144 mmol/L (136-145) Potassium Level 2.9 mmol/L (3.5-5.1) Chloride Level 104 mmol/L (98-107) Carbon Dioxide Level 27 mmol/L (21-32) Anion Gap 13 (6-14) Blood Urea Nitrogen 11 mg/dL (8-26) Creatinine 0.6 mg/dL (0.7-1.3) Estimated GFR (Cockcroft-Gault) 132.4 BUN/Creatinine Ratio 18 (6-20) Glucose Level 68 mg/dL (70-99) Calcium Level 8.0 mg/dL (8.5-10.1) Total Bilirubin 0.8 mg/dL (0.2-1.0) Aspartate Amino Transf (AST/SGOT) 12 U/L (15-37) Alanine Aminotransferase (ALT/SGPT) 19 U/L (16-63) Alkaline Phosphatase 112 U/L (46-116) Total Protein 6.0 g/dL (6.4-8.2) Albumin 3.0 g/dL (3.4-5.0) Albumin/Globulin Ratio 1.0 (1.0-1.7) Objective: Assessment: 1. Encephalopathy, etiology unclear with underlying history of Parkinson's, cerebrovascular accident, cognitive impairment. Improved 2. History of methicillin-resistant Staphylococcus aureus bacteremia on 05/26/2021 at [facility], on daptomycin. 3. Right parotitis and sialadenitis. Improving 4. Leukocytosis. 5. History of cerebrovascular accident. 6. History of cognitive impairment. 7. BPH. 8. Hypertensive urgency. Plan: Plan of Care Continue daptomycin/cefepime for now Monitor blood cultures Maintain aspiration precaution Continue local wound care as directed Continue supportive care Discussed with REBECCA GALLEGO MD Jun 29, 2021 08:24
[2021-06-29] MEDS: CLOPIDOGREL BISULFATE 75 MG TABLET PO SCH (09:00)
[2021-06-29] MEDS: AMANTADINE HCL 100 MG CAPSULE PO SCH ×2 (09:00→21:45)
[2021-06-29] MEDS: CARBIDOPA/LEVODOPA 25/100MG TABLET PO SCH ×4 (09:00→21:45)
[2021-06-29] MEDS: BISACODYL 5 MG TABLET.DR. PO SCH (09:00)
--- NOTE | 2021-06-29 09:24 | NUR ---
Wound/Ostomy Care Wound Type/Assessment: Wound consult for multiple skin tears. Pt has several skin tears to BUE that are scabbed. Pt has skin tears to RLE that are slough covered. Pt also has stage I PU to Right heel. Cleansed, pictured and measured wounds. Treatment Recommendations/Plan: RLE-Cleanse wounds. apply honey, xeroform an foam dressing. Right heel- apply skin prep and foam dressing, change all dressings on Friday and . Education provided: WC POC and PU prevention, pt verbalized understanding. Offloading surface/device: TQ2H, wedge and heel medix boots ordered, heels floated on pillows Recommended Referrals/Tests: na Discharge Recommendations for dressings: see above
[2021-06-29] MEDS: CARVEDILOL 12.5 MG TABLET. PO SCH ×2 (10:05→18:28)
[2021-06-29] MEDS: CEFEPIME HCL IV Push 1 GM VIAL. IVP SCH ×2 (10:06→21:46)
[2021-06-29] MEDS: hydrALAZINE 20 MG/ML VIAL. IVP PRN (10:32)
[2021-06-29 11:00] VITALS: BP_SYST 141; BP_SYST 161; BP_DIAS 82; BP_DIAS 97
--- NOTE | 2021-06-29 11:38 | PDOC ---
[employer] PROGRESS NOTE Date of Service DOS: DATE: 06/29/21 TIME: 11:35 Chief Complaint Chief Complaint Altered Mental Status Hypokalemia Parkinsons History of the following: Sepsis CAD CHF HTN CVA Dementia Peripheral Neuropathy Benign Prostatic Enlargement Total Hip Replacement History of Present Illness History of Present Illness 06/29/2012 Patient seen and examined, pleasantly confused, but oriented to time Patient is soft spoken, currently NPO, will consult speech pathology Chart Reviewed Discussed with RN Antibiotics Maci 06/28 Patient seen and examined, pleasantly confused and extremely soft spoken Chart Reviewed Discussed with RN Antibiotics Maci Vitals/I&O Vitals/I&O: Vital Signs Date Time Temp Pulse Resp B/P (MAP) Pulse Ox O2 Delivery O2 Flow Rate FiO2 06/29/21 10:32 61 196/114 06/29/21 07:00 96.3 16 98 Room Air 96.3 Physical Exam Physical Exam: GENERAL: More alert, awake, answers a few questions HEENT: Oral mucosa dry. No thrush. Right parotid swelling, erythema, tenderness improved compared to last admission Normocephalic, atraumatic. NECK: Supple. LUNGS: Clear bilaterally. HEART: S1, S2. No murmurs. ABDOMEN: Soft, nontender, nondistended. EXTREMITIES: No edema or cyanosis. Right heel chronic nonhealing ulcer, does not appear infected DERMATOLOGIC: Superficial abrasions present. NEUROLOGIC alert awake somewhat confused, generalized weakness PSYCHIATRIC: Unable to assess. General: moderate distress, Other (not oriented, awake, not alert, ) Lungs: Clear Abdomen: Soft Extremities: No clubbing, Normal pulses Skin: No breakdown Labs Labs: Laboratory Tests Test 06/29/21 04:40 Sodium Level 144 mmol/L (136-145) Potassium Level 2.9 mmol/L (3.5-5.1) Chloride Level 104 mmol/L (98-107) Carbon Dioxide Level 27 mmol/L (21-32) Anion Gap 13 (6-14) Blood Urea Nitrogen 11 mg/dL (8-26) Creatinine 0.6 mg/dL (0.7-1.3) Estimated GFR (Cockcroft-Gault) 132.4 BUN/Creatinine Ratio 18 (6-20) Glucose Level 68 mg/dL (70-99) Calcium Level 8.0 mg/dL (8.5-10.1) Total Bilirubin 0.8 mg/dL (0.2-1.0) Aspartate Amino Transf (AST/SGOT) 12 U/L (15-37) Alanine Aminotransferase (ALT/SGPT) 19 U/L (16-63) Alkaline Phosphatase 112 U/L (46-116) Total Protein 6.0 g/dL (6.4-8.2) Albumin 3.0 g/dL (3.4-5.0) Albumin/Globulin Ratio 1.0 (1.0-1.7) Assessment and Plan Assessmemt and Plan Problems Medical Problems: (1) Altered mental status Status: Acute (2) Hx of sepsis Status: Acute (3) Hypokalemia Status: Acute Altered Mental Status Hypokalemia Parkinsons History of the following: Sepsis CAD CHF HTN CVA Dementia Peripheral Neuropathy Benign Prostatic Enlargement Total Hip Replacement PLAN: Continue Antibiotics (Cefeprime and Daptomycin) Continue Fluids Continue Cardiac Monitoring Continue IV Potassium replacement Awaiting Speech Pathology consult for PO status Wound Car Trend Labs DVT Prophylaxis Home Meds Full Code Appreciate Infectious Disease Input Comment Review of Relevant I have reviewed the following items uche (where applicable) has been applied. Medications: Current Medications Medications (Trade) Dose Ordered Sig/Greg Route PRN Reason Start Time Stop Time Status Last Admin Dose Admin Cefepime HCl (Maxipime) 1 gm Q12HR IVP 06/28/21 12:00 06/29/21 10:06 Daptomycin 390 mg/ Sodium Chloride 50 ml @ 100 mls/hr Q24H IV 06/28/21 13:00 06/28/21 13:35 Potassium Chloride/Water 100 ml @ 100 mls/hr Q1HR IV 06/29/21 07:00 06/29/21 10:59 DC 06/29/21 11:25 Justifications for Admission Other Justification ADDIS GUILLEN III DO Jun 29, 2021 11:38
[2021-06-29] MEDS: DAPTOmycin (GENERIC) IVPB 390 MG in IV NORMAL SALINE 50ML 50 ML IV SCH (14:26)
[2021-06-29 15:00] VITALS: BP 161/97
[2021-06-29 19:00] VITALS: BP 89/48
--- NOTE | 2021-06-29 21:18 | NUR ---
Pt BP noted to be 89/48 - significantly lower than previous BP of 157/87. Dr Jamari waggoner. Returned call at 1355. Orders given for 500 ml bolus and increase IVF to 75 ml/hr. Will continue to monitor pt status closely
[2021-06-29] MEDS: EZETIMIBE 10 MG TABLET. PO SCH (21:45)
[2021-06-29] MEDS: QUEtiapine 25 MG TABLET. PO SCH (21:45)
[2021-06-29 23:00] VITALS: BP 135/75
[2021-06-29] MEDS ORDERED: IV NORMAL SALINE 500ML BAG 500 ML IV ONE (23:00)
[2021-06-29] MEDS: IV NORMAL SALINE 1000ML BAG 1,000 ML IV SCH (23:14)
[2021-06-30] VITALS (7 sets, daily range): BP systolic 107–195; BP diastolic 45–108
[2021-06-30] MEDS: LEVOTHYROXINE 125 MCG TABLET PO SCH (06:39)
--- NOTE | 2021-06-30 07:52 | PDOC ---
Infectious Disease Note Subjective: Subjective Patient alert awake Remains intermittently confused Vital Signs: Vital Signs Vital Signs Date Time Temp Pulse Resp B/P (MAP) Pulse Ox O2 Delivery O2 Flow Rate FiO2 06/30/21 03:00 98.2 58 18 162/84 (110) 98 Room Air 98.2 Physical Exam: PHYSICAL EXAM GENERAL: More alert, awake, answers a few questions HEENT: Oral mucosa dry. No thrush. Right parotid swelling, erythema, tenderness improved compared to last admission Normocephalic, atraumatic. NECK: Supple. LUNGS: Clear bilaterally. HEART: S1, S2. No murmurs. ABDOMEN: Soft, nontender, nondistended. EXTREMITIES: No edema or cyanosis. Right heel chronic nonhealing ulcer, does not appear infected DERMATOLOGIC: Superficial abrasions present. NEUROLOGIC alert awake somewhat confused, generalized weakness PSYCHIATRIC: Unable to assess. Medications: Inpatient Meds: Medications reviewed. Objective: Assessment: 1. Encephalopathy, etiology unclear with underlying history of Parkinson's, cerebrovascular accident, cognitive impairment. Improved 2. History of methicillin-resistant Staphylococcus aureus bacteremia on 05/26/2021 at [facility], on daptomycin. 3. Right parotitis and sialadenitis. Improving 4. Leukocytosis. 5. History of cerebrovascular accident. 6. History of cognitive impairment. 7. BPH. 8. Hypertensive urgency. Plan: Plan of Care Continue daptomycin DC cefepime Monitor blood cultures negative so far Maintain aspiration precaution Continue local wound care as directed Continue supportive care REBECCA LOVELL MD Jun 30, 2021 07:52
[2021-06-30 08:38] LABS: ALBUMIN 2.7 g/dL (3.4-5.0); CALCIUM 7.8 mg/dL (8.5-10.1); CREATININE 0.7 mg/dL (0.7-1.3); GFR 110.9; POTASSIUM 3.3 mmol/L (3.5-5.1); TOTAL BILIRUBIN 0.6 mg/dL (0.2-1.0); TOTAL PROTEIN 5.4 g/dL (6.4-8.2)
[2021-06-30] MEDS: BISACODYL 5 MG TABLET.DR. PO SCH (09:12)
[2021-06-30] MEDS: AMANTADINE HCL 100 MG CAPSULE PO SCH ×2 (09:12→21:40)
[2021-06-30] MEDS: hydrALAZINE 20 MG/ML VIAL. IVP PRN (09:12)
[2021-06-30] MEDS: CARBIDOPA/LEVODOPA 25/100MG TABLET PO SCH ×4 (09:12→21:40)
[2021-06-30] MEDS: CLOPIDOGREL BISULFATE 75 MG TABLET PO SCH (09:12)
[2021-06-30] MEDS: CARVEDILOL 12.5 MG TABLET. PO SCH ×2 (09:14→18:18)
--- NOTE | 2021-06-30 11:41 | PDOC ---
[employer] PROGRESS NOTE Date of Service DOS: DATE: 06/30/21 TIME: 11:36 Chief Complaint Chief Complaint Altered Mental Status Hypokalemia Parkinsons History of the following: Sepsis CAD CHF HTN CVA Dementia Peripheral Neuropathy Benign Prostatic Enlargement Total Hip Replacement History of Present Illness History of Present Illness 06/30/2021 Patient seen and examined Chart reviewed Discussed with RN Patient is doing better today. Still pleasantly confused but I believe this is his baseline Speech evaluation complete. Patient can advance diet as tolerated. I spoke with the , she is interested in having the patient go to a rehab facility when discharged Vitals/I&O Vitals/I&O: Vital Signs Date Time Temp Pulse Resp B/P (MAP) Pulse Ox O2 Delivery O2 Flow Rate FiO2 06/30/21 09:46 70 127/66 (86) 06/30/21 07:00 98.0 16 99 98.0 06/30/21 03:00 Room Air I & O 06/29/21 06/29/21 06/30/21 15:00 23:00 07:00 Intake Total 0 ml 300 ml Output Total 200 ml Balance -200 ml 0 ml 300 ml Physical Exam Physical Exam: GENERAL: More alert, awake, answers a few questions HEENT: Oral mucosa dry. No thrush. Right parotid swelling, erythema, tend erness improved compared to last admission Normocephalic, atraumatic. NECK: Supple. LUNGS: Clear bilaterally. HEART: S1, S2. No murmurs. ABDOMEN: Soft, nontender, nondistended. EXTREMITIES: No edema or cyanosis. Right heel chronic nonhealing ulcer, does not appear infected DERMATOLOGIC: Superficial abrasions present. NEUROLOGIC alert awake somewhat confused, generalized weakness PSYCHIATRIC: Unable to assess. General: Alert, No acute distress, Other (pleasantly confused) Heart: Regular rate Lungs: Clear Abdomen: Soft Extremities: No clubbing, Normal pulses Skin: No breakdown Labs Labs: Laboratory Tests Test 06/30/21 07:20 Sodium Level 145 mmol/L (136-145) Potassium Level 3.3 mmol/L (3.5-5.1) Chloride Level 108 mmol/L (98-107) Carbon Dioxide Level 28 mmol/L (21-32) Anion Gap 9 (6-14) Blood Urea Nitrogen 16 mg/dL (8-26) Creatinine 0.7 mg/dL (0.7-1.3) Estimated GFR (Cockcroft-Gault) 110.9 BUN/Creatinine Ratio 23 (6-20) Glucose Level 86 mg/dL (70-99) Calcium Level 7.8 mg/dL (8.5-10.1) Total Bilirubin 0.6 mg/dL (0.2-1.0) Aspartate Amino Transf (AST/SGOT) 15 U/L (15-37) Alanine Aminotransferase (ALT/SGPT) 6 U/L (16-63) Alkaline Phosphatase 94 U/L (46-116) Total Protein 5.4 g/dL (6.4-8.2) Albumin 2.7 g/dL (3.4-5.0) Albumin/Globulin Ratio 1.0 (1.0-1.7) Assessment and Plan Assessmemt and Plan Problems Medical Problems: (1) Altered mental status Status: Acute (2) Hx of sepsis Status: Acute (3) Hypokalemia Status: Acute Altered Mental Status Hypokalemia Parkinsons History of the following: Sepsis CAD CHF HTN CVA Dementia Peripheral Neuropathy Benign Prostatic Enlargement Total Hip Replacement PLAN: Consult social work job titles for penitentiary evaluation Continue Antibiotics (Cefepime and Daptomycin) Continue Fluids Continue Cardiac Monitoring Continue IV Potassium replacement Advance diet as tolerated Wound Care Trend Labs DVT Prophylaxis Home Meds Full Code Appreciate Infectious Disease Input Comment Review of Relevant I have reviewed the following items uche (where applicable) has been applied. Medications: Current Medications Medications (Trade) Dose Ordered Sig/Greg Route PRN Reason Start Time Stop Time Status Last Admin Dose Admin Sodium Chloride 1,000 ml @ 75 mls/hr [id number] IV 06/30/21 00:00 06/29/21 23:14 Justifications for Admission Other Justification ADDIS GUILLEN III DO Jun 30, 2021 11:41
[2021-06-30] MEDS ORDERED: POTASSIUM CHLORIDE 20 MEQ TABLET.ER. PO ONE (12:00)
[2021-06-30] MEDS: DAPTOmycin (GENERIC) IVPB 390 MG in IV NORMAL SALINE 50ML 50 ML IV SCH (12:48)
[2021-06-30] MEDS: IV NORMAL SALINE 1000ML BAG 1,000 ML IV SCH (12:51)
[2021-06-30] MEDS: EZETIMIBE 10 MG TABLET. PO SCH (21:40)
[2021-06-30] MEDS: QUEtiapine 25 MG TABLET. PO SCH (21:40)
[2021-07-01] MEDS: IV NORMAL SALINE 1000ML BAG 1,000 ML IV SCH (02:34)
[2021-07-01 03:23] VITALS: BP 172/94
[2021-07-01] MEDS: hydrALAZINE 20 MG/ML VIAL. IVP PRN ×2 (03:39→18:04)
[2021-07-01] MEDS: LEVOTHYROXINE 125 MCG TABLET PO SCH (05:54)
--- NOTE | 2021-07-01 06:50 | PDOC ---
Infectious Disease Note Subjective: Subjective Patient sitting quietly Arousable Appears comfortable Remains intermittently confused Vital Signs: Vital Signs Vital Signs Date Time Temp Pulse Resp B/P (MAP) Pulse Ox O2 Delivery O2 Flow Rate FiO2 07/01/21 03:39 53 172/94 07/01/21 03:23 97.1 20 97 Room Air 97.1 Physical Exam: PHYSICAL EXAM GENERAL: More alert, awake, answers a few questions HEENT: Oral mucosa dry. No thrush. Right parotid swelling, erythema, tenderness improved compared to last admission Normocephalic, atraumatic. NECK: Supple. LUNGS: Clear bilaterally. HEART: S1, S2. No murmurs. ABDOMEN: Soft, nontender, nondistended. EXTREMITIES: No edema or cyanosis. Right heel chronic nonhealing ulcer, does not appear infected DERMATOLOGIC: Superficial abrasions present. NEUROLOGIC alert awake somewhat confused, generalized weakness PSYCHIATRIC: Unable to assess. Medications: Inpatient Meds: Medications reviewed. Labs: Lab Laboratory Tests Test 06/30/21 07:20 Sodium Level 145 mmol/L (136-145) Potassium Level 3.3 mmol/L (3.5-5.1) Chloride Level 108 mmol/L (98-107) Carbon Dioxide Level 28 mmol/L (21-32) Anion Gap 9 (6-14) Blood Urea Nitrogen 16 mg/dL (8-26) Creatinine 0.7 mg/dL (0.7-1.3) Estimated GFR (Cockcroft-Gault) 110.9 BUN/Creatinine Ratio 23 (6-20) Glucose Level 86 mg/dL (70-99) Calcium Level 7.8 mg/dL (8.5-10.1) Total Bilirubin 0.6 mg/dL (0.2-1.0) Aspartate Amino Transf (AST/SGOT) 15 U/L (15-37) Alanine Aminotransferase (ALT/SGPT) 6 U/L (16-63) Alkaline Phosphatase 94 U/L (46-116) Total Protein 5.4 g/dL (6.4-8.2) Albumin 2.7 g/dL (3.4-5.0) Albumin/Globulin Ratio 1.0 (1.0-1.7) Objective: Assessment: 1. Encephalopathy, etiology unclear with underlying history of Parkinson's, cerebrovascular accident, cognitive impairment. Improved 2. History of methicillin-resistant Staphylococcus aureus bacteremia on 05/26/2021 at [facility], on daptomycin. 3. Right parotitis and sialadenitis. Improving 4. Leukocytosis. 5. History of cerebrovascular accident. 6. History of cognitive impairment. 7. BPH. 8. Hypertensive urgency. Plan: Plan of Care Continue daptomycin Off cefepime Monitor blood cultures negative so far Maintain aspiration precaution Continue local wound care as directed Continue supportive care REBECCA LOVELL MD Jul 01, 2021 06:50
[2021-07-01 07:00] VITALS: BP 139/75
[2021-07-01 08:34] LABS: BASO # 0.1 x10^3/uL (0.0-0.2); BASO % 1 % (0-3); EOS # 0.1 x10^3/uL (0.0-0.7); EOS % 1 % (0-3); HEMATOCRIT 32.8 % (39.0-53.0); LYMPH # 1.2 x10^3/uL (1.0-4.8); LYMPH % 11 % (24-48); MEAN CORPUSCULAR HEMOGLOBIN 28 pg (25-35); MEAN CORPUSCULAR HGB CONC 34 g/dL (31-37); MEAN CORPUSCULAR VOLUME 84 fL (79-100); MONO # 0.8 x10^3/uL (0.0-1.1); MONO % 7 % (0-9); NEUT # 8.2 x10^3/uL (1.8-7.7); NEUT % 79 % (31-73); PLATELET COUNT 169 x10^3/uL (140-400); RED BLOOD COUNT 3.91 x10^6/uL (4.30-5.70); RED CELL DISTRIBUTION WIDTH 16.7 % (11.5-14.5); WHITE BLOOD COUNT 10.4 x10^3/uL (4.0-11.0)
[2021-07-01 08:55] LABS: ALBUMIN 2.8 g/dL (3.4-5.0); ALBUMIN/GLOBULIN RATIO 1.1 (1.0-1.7); CALCIUM 7.8 mg/dL (8.5-10.1); CREATININE 0.6 mg/dL (0.7-1.3); GFR 132.4; POTASSIUM 3.6 mmol/L (3.5-5.1); TOTAL BILIRUBIN 0.5 mg/dL (0.2-1.0); TOTAL PROTEIN 5.3 g/dL (6.4-8.2)
--- NOTE | 2021-07-01 10:45 | PDOC ---
[employer] PROGRESS NOTE Date of Service DOS: DATE: 07/01/21 TIME: 10:43 Chief Complaint Chief Complaint Altered Mental Status Hypokalemia Parkinsons History of the following: Sepsis CAD CHF HTN CVA Dementia Peripheral Neuropathy Benign Prostatic Enlargement Total Hip Replacement History of Present Illness History of Present Illness 07/01/2021 Patient seen and examined, resting in NAD Chart Reviewed Discussed with RN Antibiotics hanging (Daptomycin) 06/30/2021 Patient seen and examined Chart reviewed Discussed with RN Patient is doing better today. Still pleasantly confused but I believe this is his baseline Speech evaluation complete. Patient can advance diet as tolerated. I spoke with the , she is interested in having the patient go to a rehab facility when discharged Vitals/I&O Vitals/I&O: Vital Signs Date Time Temp Pulse Resp B/P (MAP) Pulse Ox O2 Delivery O2 Flow Rate FiO2 07/01/21 08:00 Room Air 07/01/21 07:00 98.9 65 18 139/75 (96) 96 98.9 I & O 06/30/21 06/30/21 07/01/21 15:00 23:00 07:00 Intake Total 1290 ml Output Total 0 ml Balance 1290 ml 0 ml Physical Exam Physical Exam: GENERAL: More alert, awake, answers a few questions HEENT: Oral mucosa dry. No thrush. Right parotid swelling, erythema, tenderness improved compared to last admission Normocephalic, atraumatic. NECK: Supple. LUNGS: Clear bilaterally. HEART: S1, S2. No murmurs. ABDOMEN: Soft, nontender, nondistended. EXTREMITIES: No edema or cyanosis. Right heel chronic nonhealing ulcer, does not appear infected DERMATOLOGIC: Superficial abrasions present. NEUROLOGIC alert awake somewhat confused, generalized weakness PSYCHIATRIC: Unable to assess. General: Alert, No acute distress, Other (pleasantly confused) Heart: Regular rate Lungs: Clear Abdomen: Soft Extremities: No clubbing, Normal pulses Skin: No breakdown Labs Labs: Laboratory Tests Test 07/01/21 07:50 07/01/21 07:51 Sodium Level 146 mmol/L (136-145) Potassium Level 3.6 mmol/L (3.5-5.1) Chloride Level 110 mmol/L (98-107) Carbon Dioxide Level 28 mmol/L (21-32) Anion Gap 8 (6-14) Blood Urea Nitrogen 14 mg/dL (8-26) Creatinine 0.6 mg/dL (0.7-1.3) Estimated GFR (Cockcroft-Gault) 132.4 BUN/Creatinine Ratio 23 (6-20) Glucose Level 88 mg/dL (70-99) Calcium Level 7.8 mg/dL (8.5-10.1) Total Bilirubin 0.5 mg/dL (0.2-1.0) Aspartate Amino Transf (AST/SGOT) 12 U/L (15-37) Alanine Aminotransferase (ALT/SGPT) 8 U/L (16-63) Alkaline Phosphatase 91 U/L (46-116) Total Protein 5.3 g/dL (6.4-8.2) Albumin 2.8 g/dL (3.4-5.0) Albumin/Globulin Ratio 1.1 (1.0-1.7) White Blood Count 10.4 x10^3/uL (4.0-11.0) Red Blood Count 3.91 x10^6/uL (4.30-5.70) Hemoglobin 11.0 g/dL (13.0-17.5) Hematocrit 32.8 % (39.0-53.0) Mean Corpuscular Volume 84 fL (79-100) Mean Corpuscular Hemoglobin 28 pg (25-35) Mean Corpuscular Hemoglobin Concent 34 g/dL (31-37) Red Cell Distribution Width 16.7 % (11.5-14.5) Platelet Count 169 x10^3/uL (140-400) Neutrophils (%) (Auto) 79 % (31-73) Lymphocytes (%) (Auto) 11 % (24-48) Monocytes (%) (Auto) 7 % (0-9) Eosinophils (%) (Auto) 1 % (0-3) Basophils (%) (Auto) 1 % (0-3) Neutrophils # (Auto) 8.2 x10^3/uL (1.8-7.7) Lymphocytes # (Auto) 1.2 x10^3/uL (1.0-4.8) Monocytes # (Auto) 0.8 x10^3/uL (0.0-1.1) Eosinophils # (Auto) 0.1 x10^3/uL (0.0-0.7) Basophils # (Auto) 0.1 x10^3/uL (0.0-0.2) Assessment and Plan Assessmemt and Plan Problems Medical Problems: (1) Altered mental status Status: Acute (2) Hx of sepsis Status: Acute (3) Hypokalemia Status: Acute Altered Mental Status Hypokalemia Parkinsons History of the following: Sepsis CAD CHF HTN CVA Dementia Peripheral Neuropathy Benign Prostatic Enlargement Total Hip Replacement PLAN: Awaiting [facility] evaluation Continue Antibiotics (Daptomycin) Continue Fluids Continue Cardiac Monitoring Advance diet as tolerated Wound Care Trend Labs DVT Prophylaxis Home Meds Full Code Appreciate Infectious Disease Input Comment Review of Relevant I have reviewed the following items uche (where applicable) has been applied. Medications: Current Medications Medications (Trade) Dose Ordered Sig/Greg Route PRN Reason Start Time Stop Time Status Last Admin Dose Admin Potassium Chloride (Klor-Con) 40 meq 1X ONCE PO 06/30/21 12:00 06/30/21 12:01 DC 06/30/21 12:47 Justifications for Admission Other Justification ADDIS GUILLEN III DO Jul 01, 2021 10:45
[2021-07-01 11:00] VITALS: BP 167/83
[2021-07-01] MEDS: AMANTADINE HCL 100 MG CAPSULE PO SCH ×2 (13:09→21:36)
[2021-07-01] MEDS: CLOPIDOGREL BISULFATE 75 MG TABLET PO SCH (13:09)
[2021-07-01] MEDS: CARVEDILOL 12.5 MG TABLET. PO SCH ×2 (13:09→18:01)
[2021-07-01] MEDS: CARBIDOPA/LEVODOPA 25/100MG TABLET PO SCH ×4 (13:09→21:36)
[2021-07-01] MEDS: BISACODYL 5 MG TABLET.DR. PO SCH (13:09)
--- NOTE | 2021-07-01 13:10 | NUR ---
All of patients PO medications were not administered due to patient being lethargic and not waking up long enough to take medications or eat.
[2021-07-01] MEDS: DAPTOmycin (GENERIC) IVPB 390 MG in IV NORMAL SALINE 50ML 50 ML IV SCH (13:13)
[2021-07-01] MEDS: POTASSIUM CL 20MEQ-0.45% NACL 1,000 ML IV SCH (13:14)
[2021-07-01 15:00] VITALS: BP 183/100
[2021-07-01 19:07] VITALS: BP 107/61
[2021-07-01] MEDS: QUEtiapine 25 MG TABLET. PO SCH (21:35)
[2021-07-01] MEDS: LACTOBACILLUS RHAMNOSUS GG 1 CAPSULE. PO SCH (21:35)
[2021-07-01] MEDS: EZETIMIBE 10 MG TABLET. PO SCH (21:36)
[2021-07-01 23:00] VITALS: BP 154/78
[2021-07-02] MEDS: POTASSIUM CL 20MEQ-0.45% NACL 1,000 ML IV SCH (02:36)
[2021-07-02 03:00] VITALS: BP 169/99
[2021-07-02 06:17] LABS: BASO # 0.1 x10^3/uL (0.0-0.2); BASO % 1 % (0-3); EOS # 0.1 x10^3/uL (0.0-0.7); EOS % 2 % (0-3); HEMATOCRIT 33.4 % (39.0-53.0); HEMOGLOBIN 11.1 g/dL (13.0-17.5); LYMPH # 1.2 x10^3/uL (1.0-4.8); LYMPH % 14 % (24-48); MEAN CORPUSCULAR HEMOGLOBIN 28 pg (25-35); MEAN CORPUSCULAR HGB CONC 33 g/dL (31-37); MEAN CORPUSCULAR VOLUME 85 fL (79-100); MONO # 0.6 x10^3/uL (0.0-1.1); MONO % 8 % (0-9); NEUT % 76 % (31-73); PLATELET COUNT 155 x10^3/uL (140-400); RED BLOOD COUNT 3.95 x10^6/uL (4.30-5.70); RED CELL DISTRIBUTION WIDTH 16.9 % (11.5-14.5)
[2021-07-02] MEDS: LEVOTHYROXINE 125 MCG TABLET PO SCH (06:32)
[2021-07-02 06:34] LABS: ALBUMIN 2.7 g/dL (3.4-5.0); CREATININE 0.5 mg/dL (0.7-1.3); GFR 163.5; POTASSIUM 3.5 mmol/L (3.5-5.1); TOTAL BILIRUBIN 0.5 mg/dL (0.2-1.0); TOTAL PROTEIN 5.4 g/dL (6.4-8.2)
[2021-07-02 07:00] VITALS: BP 194/101
[2021-07-02] MEDS: CLOPIDOGREL BISULFATE 75 MG TABLET PO SCH (09:04)
[2021-07-02] MEDS: AMANTADINE HCL 100 MG CAPSULE PO SCH (09:04)
[2021-07-02] MEDS: CARBIDOPA/LEVODOPA 25/100MG TABLET PO SCH ×3 (09:05→18:00)
[2021-07-02] MEDS: BISACODYL 5 MG TABLET.DR. PO SCH (09:05)
[2021-07-02] MEDS: LACTOBACILLUS RHAMNOSUS GG 1 CAPSULE. PO SCH (09:10)
[2021-07-02] MEDS: CARVEDILOL 12.5 MG TABLET. PO SCH ×2 (09:12→18:01)
--- NOTE | 2021-07-02 10:06 | PDOC ---
Infectious Disease Note Subjective Subjective pt is awake, says he is fine ROS ROS no n/v/d/ Vital Sign Vital Signs Vital Signs Date Time Temp Pulse Resp B/P (MAP) Pulse Ox O2 Delivery O2 Flow Rate FiO2 07/02/21 09:12 60 194/101 07/02/21 03:00 97.3 18 98 97.3 07/01/21 08:00 Room Air Physical Exam PHYSICAL EXAM GENERAL: More alert, awake, answers a few questions HEENT: Oral mucosa dry. No thrush. Right parotid swelling, erythema, tenderness improved compared to last admission Normocephalic, atraumatic. NECK: Supple. LUNGS: Clear bilaterally. HEART: S1, S2. No murmurs. ABDOMEN: Soft, nontender, nondistended. EXTREMITIES: No edema or cyanosis. Right heel chronic nonhealing ulcer, does not appear infected DERMATOLOGIC: Superficial abrasions present. NEUROLOGIC alert awake somewhat confused, generalized weakness PSYCHIATRIC: Unable to assess. Labs Lab Laboratory Tests Test 07/02/21 05:30 White Blood Count 8.0 x10^3/uL (4.0-11.0) Red Blood Count 3.95 x10^6/uL (4.30-5.70) Hemoglobin 11.1 g/dL (13.0-17.5) Hematocrit 33.4 % (39.0-53.0) Mean Corpuscular Volume 85 fL (79-100) Mean Corpuscular Hemoglobin 28 pg (25-35) Mean Corpuscular Hemoglobin Concent 33 g/dL (31-37) Red Cell Distribution Width 16.9 % (11.5-14.5) Platelet Count 155 x10^3/uL (140-400) Neutrophils (%) (Auto) 76 % (31-73) Lymphocytes (%) (Auto) 14 % (24-48) Monocytes (%) (Auto) 8 % (0-9) Eosinophils (%) (Auto) 2 % (0-3) Basophils (%) (Auto) 1 % (0-3) Neutrophils # (Auto) 6.0 x10^3/uL (1.8-7.7) Lymphocytes # (Auto) 1.2 x10^3/uL (1.0-4.8) Monocytes # (Auto) 0.6 x10^3/uL (0.0-1.1) Eosinophils # (Auto) 0.1 x10^3/uL (0.0-0.7) Basophils # (Auto) 0.1 x10^3/uL (0.0-0.2) Sodium Level 143 mmol/L (136-145) Potassium Level 3.5 mmol/L (3.5-5.1) Chloride Level 105 mmol/L (98-107) Carbon Dioxide Level 29 mmol/L (21-32) Anion Gap 9 (6-14) Blood Urea Nitrogen 10 mg/dL (8-26) Creatinine 0.5 mg/dL (0.7-1.3) Estimated GFR (Cockcroft-Gault) 163.5 BUN/Creatinine Ratio 20 (6-20) Glucose Level 75 mg/dL (70-99) Calcium Level 8.0 mg/dL (8.5-10.1) Total Bilirubin 0.5 mg/dL (0.2-1.0) Aspartate Amino Transf (AST/SGOT) 11 U/L (15-37) Alanine Aminotransferase (ALT/SGPT) 6 U/L (16-63) Alkaline Phosphatase 96 U/L (46-116) Total Protein 5.4 g/dL (6.4-8.2) Albumin 2.7 g/dL (3.4-5.0) Albumin/Globulin Ratio 1.0 (1.0-1.7) Micro Microbiology 06/27/21 Blood Culture - Preliminary, Resulted NO GROWTH AFTER 4 DAYS Objective Assessment 1. Encephalopathy, etiology unclear with underlying history of Parkinson's, cerebrovascular accident, cognitive impairment. Improved 2. History of methicillin-resistant Staphylococcus aureus bacteremia on 05/26/2021 at [facility], on daptomycin. 3. Right parotitis and sialadenitis. Improving 4. Leukocytosis. 5. History of cerebrovascular accident. 6. History of cognitive impairment. 7. BPH. 8. Hypertensive urgency. Plan Plan of Care Continue daptomycin,, 2 more wks Monitor blood cultures negative so far Maintain aspiration precaution Continue local wound care as directed Continue supportive care ok to JACKIE Medina MD Jul 02, 2021 10:06
[2021-07-02 11:00] VITALS: BP 129/75
[2021-07-02] MEDS ORDERED: EZET10TA48 PO (12:28)
[2021-07-02] MEDS ORDERED: DAPT350V IV (12:28)
--- NOTE | 2021-07-02 12:29 | SNU/HH DC ---
DISCHARGE ORDERS DISCHARGE INFORMATION: FINAL DIAGNOSIS Problems Medical Problems: (1) Altered mental status Status: Acute (2) Hx of sepsis Status: Acute (3) Hypokalemia Status: Acute CONDITION ON DISCHARGE: Stable CODE STATUS: Code Status: Full [facility]: SNF STAY <30 DAYS: Yes HOSPICE: HOSPICE: No HOSPICE EVAL & TREAT: No LTAC: ADMIT TO LTAC: No POST DISCHARGE ORDERS: ACTIVITY ORDERS: No restrictions, Activity as tolerated WEIGHT BEARING STATUS: No restrictions, As tolerated DIET AFTER DISCHARGE: Cardiac WOUND/INCISION CARE: No wound care needed CHECKS AFTER DISCHARGE: CHECKS AFTER DISCHARGE: Check blood press - daily, Check your Temp as needed TREATMENT/EQUIPMENT ORDERS: ADAPTIVE EQUIPMENT NEEDED: None, Front wheeled walker Physical Therapy For: Evalulation/Treatment Occupational Therapy For: Evaluation/Treatment Speech Language Pathology For: Evaluation/Treatment DISCHARGE MEDICATIONS: Home Meds Active Scripts Ezetimibe (Ezetimibe) 10 Mg Tablet, 10 MG PO HS for . for 30 Days, #30 TAB Prov:CASTLE,OLMANL K III DO 07/02/21 Daptomycin (Daptomycin) 350 Mg Vial, 350 MG IV DAILY for . for 14 Days, #14 EACH Prov:OLMAN GUILLENL K III DO 07/02/21 Daptomycin (Daptomycin) 350 Mg Vial, 390 MG IV DAILY for MRSA abscess for 20 Days, #23 EACH Prov:GALINA LILLY MD 06/07/21 Carvedilol (COREG) 25 Mg Tablet, 25 MG PO BIDWMEALS for CARDIAC for 30 Days, #60 TAB Prov:GALINA LILLY MD 06/07/21 Mag Hydrox/Al Hydrox/Simeth (MAG-AL PLUS XS SUSPENSION) 30 Ml Oral.susp, 30 ML PO PRN Q3HRS PRN for HEARTBURN / GAS for 14 Days, #120 MISC Prov:JESSICA SHUKLA MD 12/26/20 Acetaminophen (ACETAMINOPHEN) 325 Mg Tablet, 650 MG PO PRN Q6HRS PRN for Heada ches, Temp > 101.5F for 14 Days, #60 TAB Prov:JESSICA SHUKLA MD 12/26/20 Bisacodyl (BISACODYL) 5 Mg Tablet.dr, 10 MG PO DAILY for Constipation for 30 Days, #60 TAB.SR Prov:GALINA LILLY MD 05/15/20 Quetiapine Fumarate (QUETIAPINE FUMARATE) 25 Mg Tablet, 50 MG PO HS for PD/agitation for 30 Days, #60 TAB Prov:GALINA LILLY MD 05/15/20 Reported Medications Quetiapine Fumarate (SEROQUEL) 50 Mg Tablet, 1 TAB PO QHS for dementia, #30 TAB 2 Refills 06/27/21 Quetiapine Fumarate (SEROQUEL) 25 Mg Tablet, 1 TAB PO DAILY08 for dementia, #30 TAB 2 Refills 06/27/21 Oxybutynin Chloride (OXYBUTYNIN CHLORIDE) 5 Mg Tablet, 1 TAB PO BID for incontin ence, #60 TAB 11 Refills 06/27/21 Lisinopril (LISINOPRIL) 20 Mg Tablet, 1 TAB PO DAILY for htn, #30 TAB 5 Refills 06/27/21 Levothyroxine Sodium (LEVOTHYROXINE SODIUM) 150 Mcg Tablet, 1 TAB PO DAILY for thyroid, #30 TAB 5 Refills 06/27/21 Ertapenem Sodium (INVANZ) 1 Gm Vial, 1 GM IJ DAILY for sepsis, EACH 06/27/21 Cyclobenzaprine Hcl (CYCLOBENZAPRINE HCL) 10 Mg Tablet, 1 TAB PO TID for muscle spasm, #90 TAB 06/27/21 Carbidopa/Levodopa (CARBIDOPA-LEVODOPA 25-100 TAB) 1 Each Tablet, 1 TAB PO QID for parkinsons for 30 Days, #120 TAB 0 Refills 05/09/20 Amantadine Hcl (AMANTADINE) 100 Mg Tablet, 100 MG PO BID for parkinsons, TAB 08/10/19 Carbidopa/Levodopa (SINEMET CR 50-200 TABLET) 1 Each Tablet.er, 1 TAB PO 0200,0800,1400,2000 for parkinsons, TAB 08/10/19 Clopidogrel Bisulfate (CLOPIDOGREL) 75 Mg Tablet, 1 TAB PO DAILY for blood thinner, #90 TAB 1 Refill 08/10/19 Discontinued Reported Medications Ezetimibe (ZETIA) 10 Mg Tablet, 10 MG PO HS for cholesterol, TAB 08/10/19 Multivitamin (MULTI VITAMIN DAILY) 1 Each Tablet, 1 TAB PO DAILY for supplement for 30 Days, #30 TAB 0 Refills 08/10/19 ADDIS GUILLEN III DO Jul 02, 2021 12:29
[2021-07-02] MEDS: DAPTOmycin (GENERIC) IVPB 390 MG in IV NORMAL SALINE 50ML 50 ML IV SCH (13:33)
--- NOTE | 2021-07-02 13:37 | PDOC ---
[employer] PROGRESS NOTE Date of Service DOS: DATE: 07/02/21 TIME: 13:36 Chief Complaint Chief Complaint Altered Mental Status Hypokalemia Parkinsons History of the following: Sepsis CAD CHF HTN CVA Dementia Peripheral Neuropathy Benign Prostatic Enlargement Total Hip Replacement History of Present Illness History of Present Illness 07/02/2020 Patient seen and examined He is at his baseline We will going discharge with IV daptomycin per infectious disease 07/01/2021 Patient seen and examined, resting in NAD Chart Reviewed Discussed with RN Antibiotics hanging (Daptomycin) 06/30/2021 Patient seen and examined Chart reviewed Discussed with RN Patient is doing better today. Still pleasantly confused but I believe this is his baseline Speech evaluation complete. Patient can advance diet as tolerated. I spoke with the , she is interested in having the patient go to a rehab facility when discharged Vitals/I&O Vitals/I&O: Vital Signs Date Time Temp Pulse Resp B/P (MAP) Pulse Ox O2 Delivery O2 Flow Rate FiO2 07/02/21 09:12 60 194/101 07/02/21 07:00 97.4 16 97 Room Air 97.4 I & O 07/01/21 07/01/21 07/02/21 15:00 23:00 07:00 Intake Total 50 ml 0 ml Balance 50 ml 0 ml Physical Exam Physical Exam: GENERAL: More alert, awake, answers a few questions HEENT: Oral mucosa dry. No thrush. Right parotid swelling, erythema, tenderness improved compared to last admission Normocephalic, atraumatic. NECK: Supple. LUNGS: Clear bilaterally. HEART: S1, S2. No murmurs. ABDOMEN: Soft, nontender, nondistended. EXTREMITIES: No edema or cyanosis. Right heel chronic nonhealing ulcer, does not appear infected DERMATOLOGIC: Superficial abrasions present. NEUROLOGIC alert awake somewhat confused, generalized weakness PSYCHIATRIC: Unable to assess. General: Alert, No acute distress, Other (pleasantly confused) Heart: Regular rate Lungs: Clear Abdomen: Soft Extremities: No clubbing, Normal pulses Skin: No breakdown Labs Labs: Laboratory Tests Test 07/02/21 05:30 White Blood Count 8.0 x10^3/uL (4.0-11.0) Red Blood Count 3.95 x10^6/uL (4.30-5.70) Hemoglobin 11.1 g/dL (13.0-17.5) Hematocrit 33.4 % (39.0-53.0) Mean Corpuscular Volume 85 fL (79-100) Mean Corpuscular Hemoglobin 28 pg (25-35) Mean Corpuscular Hemoglobin Concent 33 g/dL (31-37) Red Cell Distribution Width 16.9 % (11.5-14.5) Platelet Count 155 x10^3/uL (140-400) Neutrophils (%) (Auto) 76 % (31-73) Lymphocytes (%) (Auto) 14 % (24-48) Monocytes (%) (Auto) 8 % (0-9) Eosinophils (%) (Auto) 2 % (0-3) Basophils (%) (Auto) 1 % (0-3) Neutrophils # (Auto) 6.0 x10^3/uL (1.8-7.7) Lymphocytes # (Auto) 1.2 x10^3/uL (1.0-4.8) Monocytes # (Auto) 0.6 x10^3/uL (0.0-1.1) Eosinophils # (Auto) 0.1 x10^3/uL (0.0-0.7) Basophils # (Auto) 0.1 x10^3/uL (0.0-0.2) Sodium Level 143 mmol/L (136-145) Potassium Level 3.5 mmol/L (3.5-5.1) Chloride Level 105 mmol/L (98-107) Carbon Dioxide Level 29 mmol/L (21-32) Anion Gap 9 (6-14) Blood Urea Nitrogen 10 mg/dL (8-26) Creatinine 0.5 mg/dL (0.7-1.3) Estimated GFR (Cockcroft-Gault) 163.5 BUN/Creatinine Ratio 20 (6-20) Glucose Level 75 mg/dL (70-99) Calcium Level 8.0 mg/dL (8.5-10.1) Total Bilirubin 0.5 mg/dL (0.2-1.0) Aspartate Amino Transf (AST/SGOT) 11 U/L (15-37) Alanine Aminotransferase (ALT/SGPT) 6 U/L (16-63) Alkaline Phosphatase 96 U/L (46-116) Total Protein 5.4 g/dL (6.4-8.2) Albumin 2.7 g/dL (3.4-5.0) Albumin/Globulin Ratio 1.0 (1.0-1.7) Assessment and Plan Assessmemt and Plan Problems Medical Problems: (1) Altered mental status Status: Acute (2) Hx of sepsis Status: Acute (3) Hypokalemia Status: Acute Discharge back to long-term care with daptomycin IV for several weeks Comment Review of Relevant I have reviewed the following items uche (where applicable) has been applied. Medications: Current Medications Medications (Trade) Dose Ordered Sig/Greg Route PRN Reason Start Time Stop Time Status Last Admin Dose Admin Lactobacillus Rhamnosus (Culturelle) 1 cap BID PO 07/01/21 21:00 07/02/21 09:10 Justifications for Admission Other Justification ADDIS GUILLEN III DO Jul 02, 2021 13:37
--- NOTE | 2021-07-02 13:56 | DS ---
DATE OF DISCHARGE: 07/02/2021 ADMITTING DIAGNOSIS: Metabolic encephalopathy. DISCHARGE DIAGNOSES: Resolving metabolic encephalopathy, history of severe Parkinson's, sepsis, coronary artery disease, hypertension, congestive heart failure, stroke, dementia, neuropathy, BPH and total hip replacement, history of MRSA sepsis. HOSPITAL COURSE: The patient is a pleasant elderly male who has multiple comorbidities. He presented with mental status change, was hypokalemic and extremely weak and not talking. He was admitted. We gave him empiric IV antibiotics and fluids. It seemed as though he had sepsis and in fact within the past couple of months, he did have a history of MRSA sepsis. We gave him antibiotics and fluids. Over the next few days, he returned to baseline. Today, I saw and examined him. He is doing well. We plan to discharge to [facility]. DISPOSITION: [facility]. ACTIVITY: As tolerated. DIET: Low sodium. MEDICATIONS: We are going to resume his home medications plus daptomycin IV for a couple more weeks. TOTAL TIME: [address]: Claudette TID: [id number]
[2021-07-02 15:00] VITALS: BP 141/76
[2021-07-02 18:01] VITALS: BP 129/75
== END 2021-07-02 18:05 | DRG 871 ==
LOC: ER 10:09 → ED HOLD 12:50 → 5 NORTH 14:18
PROVIDERS: ADMIT Internal Medicine; ATTEND Internal Medicine
DX: A41.9 Sepsis, unspecified organism (principal); G93.41 Metabolic encephalopathy; E03.9 Hypothyroidism, unspecified; E78.00 Pure hypercholesterolemia, unspecified; E78.5 Hyperlipidemia, unspecified; E87.6 Hypokalemia; F02.80 Dementia in other diseases classified elsewhere, unspecified severity, without behavioral disturbance, psychotic disturbance, mood disturbance, and anxiety; G20 Parkinson's disease; G62.9 Polyneuropathy, unspecified; I11.0 Hypertensive heart disease with heart failure; I16.0 Hypertensive urgency; I25.10 Atherosclerotic heart disease of native coronary artery without angina pectoris; I50.9 Heart failure, unspecified; I73.9 Peripheral vascular disease, unspecified; K11.20 Sialoadenitis, unspecified; M19.90 Unspecified osteoarthritis, unspecified site; M48.02 Spinal stenosis, cervical region; N40.0 Benign prostatic hyperplasia without lower urinary tract symptoms; R13.10 Dysphagia, unspecified; R29.6 Repeated falls; Z86.14 Personal history of Methicillin resistant Staphylococcus aureus infection; Z86.73 Personal history of transient ischemic attack (TIA), and cerebral infarction without residual deficits; Z87.891 Personal history of nicotine dependence; Z96.643 Presence of artificial hip joint, bilateral; Z20.822 Contact with and (suspected) exposure to COVID-19
CPT/HCPCS: 36415; 70450; 71045; 72125; 80053; 82140; 82553; 83605; 83735; 84484; 85025; 85610; 85730; 87040; 87426; 87641; 87804; 96361; 96374; 96375; J0360; J0692; J0878; J2060; J3480; J3490; J7030; U0003; U0005; 92526-GN; 92610-GN; 99285-25; G0378